=== PATIENT | female | born 1960 | race Caucasian/White ===

== ENCOUNTER 2016-10-17 02:04 | Observation (INO) | payer OTHER, MEDICAID ==
[~2016-10-17] VITALS: Ht 154.9 cm; Wt 76.8 kg
[2016-10-17] VITALS (9 sets, daily range): BP systolic 111–168; BP diastolic 73–113; PULSE 88–99; RESP 14–18; TEMP 98–98.4; O2SAT 93–100
[~2016-10-17 02:04] MED LIST: ALBU6.7H INH; ARIP1TAB5 PO; CANA100T; HYDR-3534 PO; LANTUS2P SC; LISI-357 PO; NOVOLOGSS SQ; PRED20 PO; ROSU40 PO; TRAD5TAB PO; TRAM50 PO; XANA0.5T PO
[2016-10-17] MEDS ORDERED: ASPIRIN 81 MG CHEW TAB PO ONE (02:15)
[2016-10-17] MEDS ORDERED: SODIUM CHLORIDE 0.9% FLUSH 10 ML FLUSH IVF PRN (02:15)
[2016-10-17] MEDS ORDERED: METF1000 PO (02:21)
[2016-10-17] MEDS ORDERED: NOVOLOGP2 SQ (02:21)
[2016-10-17] MEDS ORDERED: XANA2TAB2 PO (02:21)
[2016-10-17] MEDS ORDERED: VICT18IN SQ (02:21)
[2016-10-17] MEDS ORDERED: LISI10TA3 PO (02:21)
[2016-10-17] MEDS ORDERED: ROSU40 PO (02:21)
[2016-10-17] MEDS ORDERED: LANTUS2P SQ (02:21)
--- NOTE | 2016-10-17 02:22 | PD ---
HPI Chief Complaint: Chest Pain Time Seen by Provider: 02:05 Travel History International Travel<30 days: No Contact w/Intl Traveler<30days: No Traveled to known affect area: No History of Present Illness HPI Patient is a 56-year-old female smoker admits to cocaine use presents emergency Department with chest pain radiating down both arms, it was mild shortness of breath. She states is fairly sharp and intense but does feel like something is sitting on her. She was given nitroglycerin prior to arrival which relieved her pain. She states that they tried to do a stress test turned in the past but because of her chronic hip pain she was unable to do the walk. She denies a history of hyperlipidemia or hypertension but has not seen a physician in some time. She states that she did use cocaine the other day for sex. She states she smoked as many as 4 packs a day in the past. PFSH Past Medical History Hx Anticoagulant Therapy: No Asthma: Yes Autoimmune Disease: Yes (HEP C AND B) Blood Disorders: No Bipolar Disorder: Yes Anxiety: Yes Depression: Yes Cancer: No Cardiovascular Problems: No High Cholesterol: Yes Chemotherapy: No Chest Pain: Yes COPD: Yes Cerebrovascular Accident: No Diabetes: Yes Patient Takes Glucophage: Yes (METFORMIN ) Diminished Hearing: No Endocrine: Yes Genitourinary: No Hepatitis: Yes (Hep C) Hypertension: Yes Immune Disorder: Yes Medical other: Yes ("COLLAPSED RIGHT HIP") Musculoskeletal: Yes Neurologic: Yes Psychiatric: Yes (BIPOLAR) Reproductive: Yes Respiratory: No Migraines: Yes Myocardial Infarction: No Radiation Therapy: No Renal Failure: No Ulcer: No ?: Not Menopausal: Yes : 2 Para: 2 Tubal Ligation: Yes Past Surgical History AICD: No Arteriovenous Shunt: No Section: Yes Cholecystectomy: Yes Gynecologic Surgery: Yes (2 C-SECTIONS, PARTIAL HYSTERECTOMY) Hysterectomy: No Insulin Pump: No Joint Replacement: No Pacemaker: No Thoracic Surgery: Yes (CHOLECYSTECOMY) Other Surgery: Yes (RIGHT BREAST LUMPECTOMY BENIGN) Social History Alcohol Use: Yes (SOMETIMES ) Tobacco Use: Yes (pack every 3 days) Substance Use: No Allergies-Medications (Allergen,Severity, Reaction): Coded Allergies: Penicillin (Verified Allergy, Severe, THROAT SWELLS CLOSED, 10/17/16) Reported Meds & Prescriptions Reported Meds & Active Scripts Active Reported Xanax (Alprazolam) 2 Mg Tab 2 Mg PO BID PRN Crestor (Rosuvastatin Calcium) 40 Mg Tab 40 Mg PO DAILY Lisinopril 10 Mg Tab 10 Mg PO DAILY Metformin (Metformin HCl) 1,000 Mg Tab 1,000 Mg PO BIDPC With meals Victoza Inj (Liraglutide Inj) 18 Mg/3 Ml Pen 1.2 Mg SQ DAILY Novolog Inj (Insulin Aspart) 1,000 Unit/10 Ml Vial 0 SQ DIRECTED Sliding Scale as directed. Lantus Inj (Insulin Glargine) 1,000 Unit/10 Ml Vial 70 Units SQ AC BREAKFAST Review of Systems Except as stated in HPI: all other systems reviewed are Neg Physical Exam Narrative GENERAL: Well-developed well-nourished in no obvious distress, smells of cigarette smoke. SKIN: Focused skin assessment warm/dry. HEAD: Atraumatic. Normocephalic. EYES: Pupils equal and round. No scleral icterus. No injection or drainage. ENT: No nasal bleeding or discharge. Mucous membranes pink and moist. NECK: Trachea midline. No JVD. CARDIOVASCULAR: Regular rate and rhythm. No murmur appreciated. 2+ bilateral equal pulses in all 4 extremities. RESPIRATORY: No accessory muscle use. Clear to auscultation. Breath sounds equal bilaterally. GASTROINTESTINAL: Abdomen soft, non-tender, nondistended. Hepatic and splenic margins not palpable. MUSCULOSKELETAL: No obvious deformities. No clubbing. No cyanosis. No edema. NEUROLOGICAL: Awake and alert. No obvious cranial nerve deficits. Motor grossly within normal limits. Normal speech. PSYCHIATRIC: Appropriate mood and affect; insight and judgment normal. Data Data Last Documented VS Vital Signs Date Time Temp Pulse Resp B/P Pulse Ox O2 Delivery O2 Flow Rate FiO2 10/17/16 03:08 92 14 162/92 99 Room Air 10/17/16 02:15 2 10/17/16 02:11 98.1 Orders Electrocardiogram (10/17/16 02:05) Ckmb (Isoenzyme) Profile (10/17/16 02:05) Complete Blood Count With Diff (10/17/16 02:05) Comprehensive Metabolic Panel (10/17/16 02:05) Magnesium (Mg) (10/17/16 02:05) Prothrombin Time / Inr (Pt) (10/17/16 02:05) Act Partial Throm Time (Ptt) (10/17/16 02:05) Troponin I (10/17/16 02:05) Chest, Single Ap (10/17/16 02:05) Ecg Monitoring (10/17/16 02:05) Iv Access Insert/Monitor (10/17/16 02:05) Oximetry (10/17/16 02:05) Oxygen Administration (10/17/16 02:05) Aspirin Chew (Aspirin Chew) (10/17/16 02:15) Sodium Chloride 0.9% Flush (Ns Flush) (10/17/16 02:15) CKMB (10/17/16 02:12) CKMB% (10/17/16 02:12) Admit Order (Ed Use Only) (10/17/16 ) Activity Bed Rest With Brp (10/17/16 04:16) Vital Signs (Adult) Q4H (10/17/16 04:16) Cardiac Rhythm .As Directed (10/17/16 04:16) Notify Dr: Other .PRN (10/17/16 04:16) Notify DrAcosta Parameters (10/17/16 04:16) Resp Oxygen Nasal Cannula (10/17/16 ) Ckmb (Isoenzyme) Profile (10/17/16 05:00) Ckmb (Isoenzyme) Profile (10/17/16 08:00) Troponin I (10/17/16 05:00) Troponin I (10/17/16 08:00) Electrocardiogram (10/17/16 05:00) Electrocardiogram (10/17/16 08:00) ^ Obtain (10/17/16 04:16) Sodium Chloride 0.9% Flush (Ns Flush) (10/17/16 04:30) Sodium Chloride 0.9% Flush (Ns Flush) (10/17/16 09:00) Fish Flipper / Telemetry ANGELIQUE.Q8H (10/17/16 04:16) Labs Laboratory Tests Test 10/17/16 02:12 White Blood Count 10.4 TH/MM3 Red Blood Count 4.28 MIL/MM3 Hemoglobin 13.8 GM/DL Hematocrit 38.9 % Mean Corpuscular Volume 91.0 FL Mean Corpuscular Hemoglobin 32.3 PG Mean Corpuscular Hemoglobin 35.4 % Concent Red Cell Distribution Width 14.1 % Platelet Count 365 TH/MM3 Mean Platelet Volume 8.1 FL Neutrophils (%) (Auto) 65.0 % Lymphocytes (%) (Auto) 24.1 % Monocytes (%) (Auto) 7.0 % Eosinophils (%) (Auto) 3.4 % Basophils (%) (Auto) 0.5 % Neutrophils # (Auto) 6.8 TH/MM3 Lymphocytes # (Auto) 2.5 TH/MM3 Monocytes # (Auto) 0.7 TH/MM3 Eosinophils # (Auto) 0.4 TH/MM3 Basophils # (Auto) 0.1 TH/MM3 CBC Comment DIFF FINAL Differential Comment Prothrombin Time 10.0 SEC Prothromb Time International 0.9 RATIO Ratio Activated Partial 28.0 SEC Thromboplast Time Sodium Level 130 MEQ/L Potassium Level 3.7 MEQ/L Chloride Level 93 MEQ/L Carbon Dioxide Level 26.8 MEQ/L Anion Gap 10 MEQ/L Blood Urea Nitrogen 18 MG/DL Creatinine 1.49 MG/DL Estimat Glomerular Filtration 36 ML/MIN Rate Random Glucose 83 MG/DL Calcium Level 8.8 MG/DL Magnesium Level 1.1 MG/DL Total Bilirubin 0.3 MG/DL Aspartate Amino Transf 25 U/L (AST/SGOT) Alanine Aminotransferase 21 U/L (ALT/SGPT) Alkaline Phosphatase 117 U/L Total Creatine Kinase 182 U/L Creatine Kinase MB 5.3 NG/ML Troponin I LESS THAN 0.02 NG/ML Total Protein 7.7 GM/DL Albumin 3.0 GM/DL [facility] Medical Decision Making Medical Screen Exam Complete: Yes Emergency Medical Condition: Yes Differential Diagnosis ACS, AMI, pneumonia, pleurisy. Narrative Course Patient roomed emergency department, EKG is consistent with pulmonary disease, initial troponin negative. She is feeling comfortable after the nitroglycerin administered in the field. Her aspirin was brought up to 364 in the emergency department. Discussed with the patient despite initial laboratory workup negative recommend observation status for consideration of stress test and she is agreeable. Diagnosis Primary Impression: Chest pain Admitting Information Admitting Physician Requests: Observation Condition: Stable Dayo Green MD Oct 17, 2016 02:22
--- NOTE | 2016-10-17 02:32 | RADRPT ---
EXAM DATE/TIME: 10/17/2016 02:05 [facility] COMPARISON: CHEST SINGLE AP, October 03, 2014, 19:59. INDICATIONS : Chest pain. MEDICAL HISTORY : None. SURGICAL HISTORY : None. ENCOUNTER: Initial ACUITY: 1 day PAIN SCORE: 0/10 LOCATION: Bilateral chest FINDINGS: A single view of the chest demonstrates the lungs to be symmetrically aerated without evidence of mas s, infiltrate or effusion. The cardiomediastinal contours are unremarkable. Osseous structures are intact. CONCLUSION: The lungs are clear. Angel Johnson MD on October 17, 2016 at 2:30 Board Certified Radiologist. This report was verified electronically.
[2016-10-17 02:42] LABS: AUTOMATED NEUTROPHIL # 6.8 TH/MM3 (1.8-7.7); BASOPHIL # 0.1 TH/MM3 (0-0.2); BASOPHIL % 0.5 % (0.0-2.0); EOSINOPHIL # 0.4 TH/MM3 (0-0.4); EOSINOPHIL % 3.4 % (0.0-4.0); HEMATOCRIT 38.9 % (35.0-46.0); HEMO FLAGS DIFF FINAL; LYMPH % 24.1 % (9.0-44.0); LYMPHOCYTE # 2.5 TH/MM3 (1.0-4.8); MEAN CORPUSCULAR HEMOGLOBIN 32.3 PG (27.0-34.0); MEAN CORPUSCULAR HGB CONC 35.4 % (32.0-36.0); PLATELET COUNT 365 TH/MM3 (150-450); RED BLOOD COUNT 4.28 MIL/MM3 (4.00-5.30); RED CELL DISTRIBUTION WIDTH 14.1 % (11.6-17.2); WHITE BLOOD COUNT 10.4 TH/MM3 (4.0-11.0)
[2016-10-17 02:50] LABS: INTERNATIONAL NORMALIZED RATIO 0.9 RATIO
[2016-10-17 02:55] LABS: ALT (GPT) 21 U/L (10-53); ANION GAP 10 MEQ/L (5-15); AST (GOT) 25 U/L (15-37); BICARBONATE 26.8 MEQ/L (21.0-32.0); BLOOD UREA NITROGEN 18 MG/DL (7-18); CHLORIDE 93 MEQ/L (98-107); GLOMERULAR FILTRATION RATE 36 ML/MIN (>89); MAGNESIUM 1.1 MG/DL (1.5-2.5); POTASSIUM 3.7 MEQ/L (3.5-5.1); SODIUM (NA) 130 MEQ/L (136-145)
[2016-10-17 02:59] LABS: ALKALINE PHOSPHATASE 117 U/L (45-117); CREATINE KINASE 182 U/L (26-192); TOTAL BILIRUBIN ADULT 0.3 MG/DL (0.2-1.0)
[2016-10-17 03:12] LABS: CKMB 5.3 NG/ML (0.5-3.6)
[2016-10-17] MEDS ORDERED: SODIUM CHLORIDE 0.9% FLUSH 10 ML FLUSH IV FLUSH PRN (04:30)
[2016-10-17] MEDS ORDERED: NITROGLYCERIN 0.4 MG SL 25 TABS/BTL SL ONE (04:45)
[2016-10-17 05:58] LABS: CREATINE KINASE 155 U/L (26-192)
[2016-10-17 06:11] LABS: CKMB 4.4 NG/ML (0.5-3.6)
--- NOTE | 2016-10-17 08:11 | HHI.HP ---
HPI Primary Care Physician [facility] Chief Complaint Chest pain History of Present Illness 56-year-old female with history of diabetes, hypertension, and hyperlipidemia presents to emergency room for further evaluation of chest pain. Onset last evening 8 PM. Location left anterior chest. Initially episode began as numbness and tingling in her hands. And became ice cold and she noticed some to be white before becoming "blood red." Chest pain described as sharp pain. Associated symptoms of nausea. Duration 2 hours. Denies shortness of breath or diaphoresis. No known precipitating or relieving factors. Denies similar chest pain in the past. Endorses similar discomfort of numbness tingling and states her hands are always cold. Review of Systems General: No fatigue,weakness, fever, chills, or recent illness. Has been in her general state of health. HEENT: No GONZALEZ, no vision changes, no nasal congestion or drainage CV: As stated above. Denies any current chest pain or pressure. No palpitations, intermittent leg pain, or dizziness RESP: No SOB, cough, wheeze, or history of asthma. Continues to smoke 1 pack daily decreased from 5 packs daily. GI: No nausea, vomiting, bowel changes, diarrhea, constipation, pain, distention , melena, or blood in the stool. No change in appetite, no unintentional weight gain or weight loss. : No dysuria, urgency, frequency, or for UTIs. EXT: No lower leg edema, no paraesthesias MS: Chronic right hip pain, scheduled for surgery 11/16/16 for total hip replacement . No recent fall, injury, or known trauma. NEURO: No LOC PSYCH: No anxiety, depression, suicidal ideation, or situational stress Past Family Social History Allergies: Coded Allergies: Penicillin (Verified Allergy, Severe, THROAT SWELLS CLOSED, 10/17/16) Past Medical History Diabetes type II (last hemoglobin A1c 6.2%), hepatitis C (reports being cured with medication), bipolar disorder, hypertension, hyperlipidemia, anxiety, remote IVDA, recovering alcoholic Past Surgical History , left breast lumpectomy, cholecystectomy Reported Medications Active Reported Xanax (Alprazolam) 2 Mg Tab 2 Mg PO BID PRN Crestor (Rosuvastatin Calcium) 40 Mg Tab 40 Mg PO DAILY Lisinopril 10 Mg Tab 10 Mg PO DAILY Metformin (Metformin HCl) 1,000 Mg Tab 1,000 Mg PO BIDPC With meals Victoza Inj (Liraglutide Inj) 18 Mg/3 Ml Pen 1.2 Mg SQ DAILY Novolog Inj (Insulin Aspart) 1,000 Unit/10 Ml Vial 0 SQ DIRECTED Sliding Scale as directed. Lantus Inj (Insulin Glargine) 1,000 Unit/10 Ml Vial 70 Units SQ AC BREAKFAST Active Ordered Medications Current Medications Medications (Trade) Dose Ordered Sig/Mayo Route Start Time Stop Time Status Last Admin (NS Flush) 2 ml UNSCH PRN IVF 10/17/16 02:15 (NS Flush) 2 ml UNSCH PRN IV FLUSH 10/17/16 04:30 (NS Flush) 2 ml BID IV FLUSH 10/17/16 09:00 Family History Noncontributory for early onset cardiovascular disease. Social History Known diabetes, hypertension, and hyperlipidemia. No known personal coronary artery disease. Recovering alcoholic for 25 years. 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 Continues to smoke 1 pack/daily, this is decreased from 5 pack/daily. Endorses she used cocaine one week ago. Reports a sedentary lifestyle. Past cardiac testing None Physical Exam Vital Signs Vital Signs Date Time Temp Pulse Resp B/P Pulse Ox O2 Delivery O2 Flow Rate FiO2 10/17/16 06:19 18 10/17/16 06:11 98.4 95 18 122/90 97 10/17/16 05:16 89 14 168/89 98 Room Air 10/17/16 04:43 99 21 10/17/16 04:10 88 16 154/94 100 Room Air 10/17/16 03:08 92 14 162/92 99 Room Air 10/17/16 02:15 99 Nasal Cannula 2 10/17/16 02:11 98.1 99 14 159/113 93 Physical Exam GENERAL: Alert WN, WD, NAD, pleasant, obese, female who appears older than stated age, and disheveled HEAD: NC, AT EYES: Sclera clear, conjunctiva without injection, pupils equal and round ENT: Mucous membranes pink and moist CV: RRR, without murmur, rub, gallop, no JVD, S1-S2 no S3-S4. RESP: Faint expiratory wheeze. Diminished throughout. No crackles, wheeze, rhonchi, symmetrical chest rise, nonlabored, able to speak in full sentences. ABD: Soft, NT, ND, no masses, positive bowel tones, obese BACK: No CVAT EXT: Pulses +24, no dependent edema MS: Normal tone 4 extremities, nontender, no obvious deformities, full range of motion NEURO: CN II through CN XII grossly intact, motor strength 5/5 PSYCH: A+O 3, pleasant affect, appropriate speech, appropriate mood and affect , insight and judgment SKIN: Normal turgor, normal texture, no lesions, no rashes, even hair distribution, multiple tattoos, nail bed dirty Laboratory Laboratory Tests Test 10/17/16 10/17/16 02:12 05:15 White Blood Count 10.4 Red Blood Count 4.28 Hemoglobin 13.8 Hematocrit 38.9 Mean Corpuscular Volume 91.0 Mean Corpuscular Hemoglobin 32.3 Mean Corpuscular Hemoglobin 35.4 Concent Red Cell Distribution Width 14.1 Platelet Count 365 Mean Platelet Volume 8.1 Neutrophils (%) (Auto) 65.0 Lymphocytes (%) (Auto) 24.1 Monocytes (%) (Auto) 7.0 Eosinophils (%) (Auto) 3.4 Basophils (%) (Auto) 0.5 Neutrophils # (Auto) 6.8 Lymphocytes # (Auto) 2.5 Monocytes # (Auto) 0.7 Eosinophils # (Auto) 0.4 Basophils # (Auto) 0.1 CBC Comment DIFF FINAL Differential Comment Prothrombin Time 10.0 Prothromb Time International 0.9 Ratio Activated Partial 28.0 Thromboplast Time Sodium Level 130 Potassium Level 3.7 Chloride Level 93 Carbon Dioxide Level 26.8 Anion Gap 10 Blood Urea Nitrogen 18 Creatinine 1.49 Estimat Glomerular Filtration 36 Rate Random Glucose 83 Calcium Level 8.8 Magnesium Level 1.1 Total Bilirubin 0.3 Aspartate Amino Transf 25 (AST/SGOT) Alanine Aminotransferase 21 (ALT/SGPT) Alkaline Phosphatase 117 Total Creatine Kinase 182 155 Creatine Kinase MB 5.3 4.4 Troponin I LESS THAN 0.02 LESS THAN 0.02 Total Protein 7.7 Albumin 3.0 Result Diagram: 10/17/1621110/17/16211 Imaging Last Impressions Chest X-Ray 10/17/16204 Signed Impressions: Service Date/Time: Monday, October 17, 2016 02:05 - CONCLUSION: The lungs are clear. Angel Johnson MD Myocardial Perfusion Scan Nuc Med 10/17/16 0000 Signed Impressions: Service Date/Time: Monday, October 17, 2016 09:06 - CONCLUSION: Negative for stress-induced ischemia. Ejection fraction measured greater than 70%%. RISK CATEGORY: Low (<1%% Annual Mortality Rate) Uriel Henderson MD FACR Course EKG Normal sinus rhythm, no ST or T-segment changes Assessment and Plan Assessment and Plan Atypical chest painadmitted to chest pain center. Ruled out with 3 sets of EKGs, cardiac enzymes, and monitored overnight. Seen and evaluated by Dr. Praveen Xiong. Proceed with chemical stress test as morning. Naturally if stress test unremarkable, plans to discharge with follow-up with PCP. DiabetesSSI medium dose coverage, continue Levemir Hypertensioncontinue to monitor, continue lisinopril Hyperlipidemiacontinue Crestor Bipolar-continue home medications once corrected in EMR. Tobacco usestrongly encouraged and stressed the importance of tobacco sensation. Strongly encouraged her to quit smoking. Cocaine use- Informed her of risk of cocaine use including NM and and even , strongly encouraged her to quit using any form of illegal drugs. Possible Raynaud syndrome-gloria and sed rate will be added to laboratory studies, explained GLORIA result may not be available prior to discharge. Education on lifestyle modifications of keeping affected area warm and importance of following up with PCP. Encouraged to stop smoking. Hanna Haines Oct 17, 2016 08:11
[2016-10-17] MEDS ORDERED: NITROGLYCERIN 0.4 MG SL 25 TABS/BTL SL PRN (08:15)
[2016-10-17] MEDS ORDERED: ACETAMINOPHEN 500 MG CPLT PO PRN (08:15)
[2016-10-17] MEDS ORDERED: GLUCAGON 1 MG/ML VIAL OTHER PRN (08:15)
[2016-10-17] MEDS ORDERED: DEXTROSE 50% IN WATER 50 ML VIAL(D50) IV PRN (08:15)
[2016-10-17] MEDS ORDERED: ONDANSETRON HCL 4 MG/2 ML VIAL IV PRN (08:15)
[2016-10-17] MEDS ORDERED: ATORVASTATIN 80 MG TAB PO SCH (09:00)
[2016-10-17] MEDS ORDERED: LISINOPRIL 10 MG TAB PO SCH (09:00)
[2016-10-17] MEDS ORDERED: ASPIRIN 325 MG TAB PO SCH (09:00)
[2016-10-17] MEDS ORDERED: SODIUM CHLORIDE 0.9% FLUSH 10 ML FLUSH IV FLUSH SCH (09:00)
[2016-10-17 09:36] LABS: CREATINE KINASE 195 U/L (26-192)
[2016-10-17 09:48] LABS: CKMB 4.4 NG/ML (0.5-3.6)
[2016-10-17] MEDS ORDERED: REGADENOSON INJ 0.4 MG/5 ML SYR ONE (09:59)
[2016-10-17] MEDS ORDERED: AMINOPHYLLINE INJ 250 MG/10 ML VIAL ONE (10:05)
[2016-10-17] MEDS ORDERED: INSULIN ASPART SUPPLEMENTAL SCALE SQ SCH (11:00)
--- NOTE | 2016-10-17 11:10 | RADRPT ---
EXAM DATE/TIME: 10/17/2016 09:06 [facility] COMPARISON: MYOCARDIAL PERF PHARM SPECT, GATED W/EF, October 03, 2012, 9:29. INDICATIONS : Mid chest pain with shortness of breath for one day. Angina. DOSE: 27.2 mCi Tc99m Myoview at stress. 8.6 mCi Tc99m Myoview at rest. 0.4 mg Lexiscan STRESS SYMPTOMS: Nausea and dyspnea. MEDICATIONS: 1.) 100 mg Aminophylline IV EJECTION FRACTION: > 70% MEDICAL HISTORY : Hepatitis C. Diabetes mellitus type 2. Asthma. SURGICAL HISTORY : Hysterectomy. section. Cholecystectomy. ENCOUNTER: Initial ACUITY: 1 day PAIN SCALE: 5/10 LOCATION: Midsternal chest TECHNIQUE: The patient underwent pharmacologic stress with infusion of prescribed dose. Continuous ECG tracing was monitored during stress. Gated SPECT imaging was performed after stress and conventional SPECT i maging was performed at rest. The examination was performed on a SPECT/CT scanner, both attenuation and non-corrected datasets were reviewed. FINDINGS: DISTRIBUTION: The maximum perfused segment at stress is in the anterior lateral wall. PERFUSION STUDY: The pattern of perfusion at stress is within normal limits. GATED STUDY: There is intact wall motion and thickening without hypokinetic or dyskinetic segments. CONCLUSION: Negative for stress-induced ischemia. Ejection fraction measured greater than 70%. RISK CATEGORY: Low (<1% Annual Mortality Rate) Uriel Henderson MD FACR on October 17, 2016 at 11:07 Board Certified Radiologist. This report was verified electronically.
[2016-10-17] MEDS ORDERED: metFORMIN HCL 500 MG TAB PO SCH (12:30)
--- NOTE | 2016-10-17 15:07 | EKG ---
Date Performed: 10/17/2016 Time Performed: 08:15:30 PTAGE: 56 years EKG: Sinus rhythm LOW QRS VOLTAGE IN PRECORDIAL LEADS PREVIOUS TRACING : 10/17/2016 05.13 DOCTOR: Praveen Xiong Interpretating Date/Time 10/17/2016 15:06:55
--- NOTE | 2016-10-17 15:09 | EKG ---
Date Performed: 10/17/2016 Time Performed: 05:13:23 PTAGE: 56 years EKG: Sinus rhythm LOW QRS VOLTAGE IN PRECORDIAL LEADS BORDERLINE ECG PREVIOUS TRACING : 06/22/2013 13.54 Since previous tracing, no significant change noted DOCTOR: Praveen Xiong Interpretating Date/Time 10/17/2016 15:07:50
--- NOTE | 2016-10-17 15:12 | EKG ---
Date Performed: 10/17/2016 Time Performed: 02:13:13 PTAGE: 56 years EKG: Sinus rhythm BORDERLINE LEFT AXIS DEVIATION LOW QRS VOLTAGE IN PRECORDIAL LEADS ABNORMAL ECG NO PREVIOUS TRACING DOCTOR: Praveen Xiong Interpretating Date/Time 10/17/2016 15:11:38
--- NOTE | 2016-10-17 15:16 | TR ---
Date Performed: 10/17/2016 Time Performed: 09:42:42 DOCTOR: Praveen Xiong DRUG LIST: CLINICAL HISTORY: REASON FOR TEST: REASON FOR ENDING: OBSERVATION: CONCLUSION: Lexiscan stress test was performed under standard four minute protocol. Radionuclid e was injected one minute prior to ending the test. No electrocardiographic abormalities were present to suggest ischemia. Nuclear imaging and interpretation are pending. COMMENTS:
[2016-10-17] MEDS ORDERED: ALPRAZolam 1 MG TAB PO ONE (15:45)
--- NOTE | 2016-10-17 16:13 | HHI.DCPOC ---
Discharge Care Plan Diagnosis: (1) Atypical chest pain (2) Hypertension (3) Diabetes type 2, controlled (4) Tobacco abuse (5) Raynaud's phenomenon (by history or observed) Goals to Promote Your Health * To prevent worsening of your condition and complications * To maintain your health at the optimal level Directions to Meet Your Goals Take your medications as prescribed Follow your dietary instruction Follow activity as directed Keep your appointments as scheduled Take your immunizations and boosters as scheduled If your symptoms worsen call your PCP, if no PCP go to Urgent Care Center or Emergency Room Smoking is Dangerous to Your Health. Avoid second hand smoke Call the 24-hour hour crisis hotline for domestic abuse at Hanna Haines Oct 17, 2016 16:13
[2016-10-18] MEDS ORDERED: INSULIN GLARGINE 1,000 UNITS/10 ML VIAL SQ SCH (07:00)
[2016-11-15] MEDS ORDERED: HYDR-3580 PO (10:00)
[2016-11-15] MEDS ORDERED: OMEP40CA2 PO (10:00)
[2016-11-15] MEDS ORDERED: VICT18IN SQ (10:00)
== END 2016-10-17 17:42 | disposition home or self-care (01) ==
LOC: NEPC 02:04 → NEDA 04:20 → NEPGCP 05:55
DX: R07.89 Other chest pain (principal); E11.9 Type 2 diabetes mellitus without complications; E78.5 Hyperlipidemia, unspecified; E78.00 Pure hypercholesterolemia, unspecified; F10.21 Alcohol dependence, in remission; I73.00 Raynaud's syndrome without gangrene; I10 Essential (primary) hypertension; F17.200 Nicotine dependence, unspecified, uncomplicated; F14.90 Cocaine use, unspecified, uncomplicated; F31.9 Bipolar disorder, unspecified; G89.29 Other chronic pain; J44.9 Chronic obstructive pulmonary disease, unspecified; R94.31 Abnormal electrocardiogram [ECG] [EKG]; Z79.4 Long term (current) use of insulin; F41.9 Anxiety disorder, unspecified
CPT/HCPCS: 71010; 78452; 80053; 82550; 82552; 82948; 83735; 84484; 85025; 85610; 85652; 85730; 86038; 93005; 93017; 96372; 99285; A9502; G0378; J0280; J1815; J2785

== ENCOUNTER 2016-11-16 05:30 | Inpatient (IN) | payer OTHER, MEDICARE ==
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
[~2016-11-16] VITALS: Ht 154.9 cm; Wt 75.4 kg
[~2016-11-16 05:30] MED LIST changes: -ALBU6.7H INH; -ARIP1TAB5 PO; -CANA100T; -HYDR-3534 PO; +HYDR-3580 PO; -LANTUS2P SC; +LANTUS2P SQ; -LISI-357 PO; +LISI10TA3 PO; +METF1000 PO; +NOVOLOGP2 SQ; -NOVOLOGSS SQ; +OMEP40CA2 PO; -PRED20 PO; -TRAD5TAB PO; -TRAM50 PO; +VICT18IN SQ; -XANA0.5T PO; +XANA2TAB2 PO
[2016-11-16] MEDS ORDERED: POVIDONE IODINE 5% (ANTISEPSIS KIT) 4 APPLICATIONS EACH NARE PRN (06:00)
[2016-11-16] MEDS ORDERED: METOPROLOL TARTRATE 25 MG TAB PO PRN (06:00)
[2016-11-16] MEDS ORDERED: INSULIN HUMAN REGULAR 1,000 UNITS/10 ML VIAL SQ PRN (06:00)
[2016-11-16] MEDS ORDERED: SODIUM CHLORID 0.9% 500 ML IV PRN (06:00)
[2016-11-16] MEDS ORDERED: POVIDONE IODINE 7.5% SCRUB 118 ML BOTTLE TOPICAL SCH (06:00)
[2016-11-16] MEDS ORDERED: CHLORHEXIDINE GLUCONATE 2 % 1 PACK (2 CLOTHS) TOPICAL PRN (06:00)
[2016-11-16] MEDS ORDERED: LACTATED RINGER'S 1000 ML IV PRN (06:00)
[2016-11-16] MEDS ORDERED: VANCOMYCIN 1000 MG/NS 250 ML (for <70 kg) IV SCH ×2 (06:00)
[2016-11-16] MEDS ORDERED: ceFAZolin INJ 1,000 MG VIAL ONE (06:11)
[2016-11-16] MEDS ORDERED: TRANEXAMIC ACID 1 GM PRIOR TO PROCEDURE IV SCH ×2 (06:15)
[2016-11-16] MEDS ORDERED: VANCOMYCIN HCL 1000 MG VIAL ONE (06:48)
[2016-11-16] MEDS ORDERED: SODIUM CHLORIDE 0.9% INJ 10 ML ONE (06:48)
[2016-11-16] MEDS ORDERED: FAMOTIDINE 20 MG/2 ML VIAL ONE (06:50)
[2016-11-16] MEDS ORDERED: MIDAZOLAM HCL 2 MG/2 ML VIAL ONE (06:50)
[2016-11-16] MEDS ORDERED: ONDANSETRON HCL 4 MG/2 ML VIAL ONE (06:55)
[2016-11-16] MEDS ORDERED: TRANEXAMIC ACID 1 GM POST-OP IV SCH ×2 (09:15)
[2016-11-16] MEDS ORDERED: DO NOT ADM ANY ANTICOAGULANT DRUGS PRN (09:41)
[2016-11-16] MEDS ORDERED: ONDANSETRON HCL 4 MG/2 ML VIAL IVP PRN (09:45)
[2016-11-16] MEDS ORDERED: SODIUM CHLORIDE 0.9% FLUSH 5 ML FLUSH IVF PRN (09:45)
[2016-11-16] MEDS ORDERED: DOCUSATE SODIUM 100 MG CAP PO PRN (09:45)
[2016-11-16] MEDS ORDERED: ZOLPIDEM TARTRATE 5 MG TAB PO PRN (09:45)
[2016-11-16] MEDS ORDERED: TRANEXAMIC ACID INJ 1,000 MG in SODIUM CHLORIDE 0.9% INJ 100 ML IV SCH (09:45)
[2016-11-16] MEDS ORDERED: ACETAMINOPHEN/HYDROcodone 325 MG/7.5 MG TAB PO PRN (09:45)
[2016-11-16] MEDS ORDERED: ACETAMINOPHEN 325 MG TAB PO PRN (09:45)
[2016-11-16] MEDS ORDERED: MISCELLANEOUS PHARMACY INFORMATION XX ONE (09:45)
[2016-11-16] MEDS ORDERED: Post-op Orders (for Pharmacy) MISC XX ONE (09:45)
[2016-11-16] MEDS ORDERED: NALOXONE HCL 0.4 MG/ML AMP IV PRN (09:45)
[2016-11-16] MEDS: DEXT 5%-NACL 0.45% 1000 ML INJ 1,000 ML IV SCH ×2 (10:00→18:00)
[2016-11-16] MEDS: HYDROmorphone HCL PCA 6 MG/30 ML IV SCH ×2 (10:28→21:31)
--- NOTE | 2016-11-16 10:33 | RADRPT ---
EXAM DATE/TIME: 11/16/2016 10:14 [place] COMPARISON: No previous studies available for comparison. INDICATIONS : Post op right hip surgery MEDICAL HISTORY : None. SURGICAL HISTORY : None. ENCOUNTER: Initial ACUITY: 1 day PAIN SCORE: 0/10 LOCATION: Right hip FINDINGS: The patient is status post a total hip arthroplasty with a bipolar prosthesis. Prosthesis is well-sea aleyda. Alignment is anatomic. A fracture is not appreciated. CONCLUSION: Anatomic alignment. Urile Henderson MD FACR Board Certified Radiologist. This report was verified electronically.
[2016-11-16] MEDS ORDERED: LACTATED RINGER'S 1000 ML INJ 1,000 ML IV ONE (12:00)
[2016-11-16] MEDS ORDERED: PHENYLEPH/NS 1000 MCG/10 ML SYR IV ONE (12:00)
[2016-11-16] MEDS ORDERED: PROPOFOL 200 MG/20 ML AMP IV ONE (12:00)
[2016-11-16] MEDS ORDERED: ePHEDrine/NS 25 MG/5 ML SYR IV ONE (12:00)
[2016-11-16] MEDS ORDERED: NEOSTIGMINE 3 MG/3 ML SYR IV ONE (12:00)
[2016-11-16] MEDS ORDERED: ONDANSETRON HCL 4 MG/2 ML VIAL IV PUSH ONE (12:00)
[2016-11-16 13:50] VITALS: BP 176/97; PULSE 113; RESP 17; TEMP 96.6; O2SAT 94
[2016-11-16] MEDS: PCA - TOTAL MG DILAUDID DELIVERED PER SHIFT SCH ×2 (14:00→21:31)
[2016-11-16] MEDS: ACETAMINOPHEN/HYDROcodone 325 MG/7.5 MG TAB PO PRN ×2 (14:32→21:36)
[2016-11-16] MEDS ORDERED: GLUCAGON 1 MG/ML VIAL OTHER PRN (15:00)
[2016-11-16] MEDS ORDERED: DEXTROSE 50% IN WATER 50 ML VIAL(D50) IV PRN (15:00)
--- NOTE | 2016-11-16 15:00 | PD.CONS ---
[facility] By [facility] Physician Unknown Diagnoses: History of Present Illness Mrs. Arceo is a 56-year-old female. She is hospitalized to have a total right hip replacement surgery. Baseline medical conditions include diabetes mellitus type 2, I pull her disorder, migraine headaches, hypertension, and COPD. Past surgeries R and breast lumpectomy. She is a smoker. Presently she is declining NicoDerm. Diabetes hypertension and alcoholism runs in her family. She denies any alcohol abuse. I am seeing her in the surgical holding area. She is postop and seen. She is doing well this time without complaints of nausea vomiting or diarrhea and pain is controlled. Review of Systems Constitutional: DENIES: Fever, Chills, Change in appetite Endocrine: DENIES: Heat/cold intolerance Eyes: DENIES: Blurred vision, Eye pain Ears, nose, mouth, throat: DENIES: Tinnitus, Hearing loss, Vertigo Respiratory: DENIES: Apneas, Cough, Snoring, Wheezing, Shortness of breath Cardiovascular: DENIES: Chest pain, Palpitations, Syncope Gastrointestinal: DENIES: Abdominal pain, Black stools, Bloody stools Musculoskeletal: DENIES: Joint pain, Muscle aches, Stiffness Integumentary: DENIES: Abnormal pigmentation Hematologic/lymphatic: DENIES: Bruising, Lymphadenopathy Immunologic/allergic: DENIES: Eczema Neurologic: DENIES: Abnormal gait, Headache, Paresthesias Psychiatric: DENIES: Anxiety, Confusion, Hallucinations Past Family Social History Allergies: Coded Allergies: penicillin G (Unverified Allergy, Severe, THROAT SWELLS CLOSED, 11/15/16) Past Medical History Diabetes mellitus type 2 Hypertension COPD Migraine headaches Bipolar disorder Past Surgical History Breast lumpectomy (benign) Reported Medications Reported Meds & Active Scripts Active Reported Omeprazole 40 Mg Cap 40 Mg PO DAILY Hydrocodone-Acetaminophen 7.5-325 mg Tab 1 Tab PO Q4H PRN Xanax (Alprazolam) 2 Mg Tab 2 Mg PO BID PRN Crestor (Rosuvastatin Calcium) 40 Mg Tab 40 Mg PO DAILY Lisinopril 10 Mg Tab 10 Mg PO DAILY Metformin (Metformin HCl) 1,000 Mg Tab 1,000 Mg PO BIDPC With meals Victoza Inj (Liraglutide Inj) 18 Mg/3 Ml Pen 1.2 Mg SQ DAILY Novolog Inj (Insulin Aspart) 1,000 Unit/10 Ml Vial 0 SQ DIRECTED Sliding Scale as directed. Lantus Inj (Insulin Glargine) 1,000 Unit/10 Ml Vial 70 Units SQ AC BREAKFAST Active Ordered Medications Administered Medications Medications (Trade) Dose Ordered Sig/Mayo Route PRN Reason Start Time Stop Time Status Last Admin Dose Admin Lactated Ringer's 1,000 ml @ 30 mls/hr Q24H PRN IV SEE LABEL COMMENTS 11/16/16 06:00 11/19/16 05:59 11/16/16 06:20 Povidone Iodine (Betadine 5% Antisepsis Kit) 1 applic SENIOR TECHNOLOGIST PRN EACH NARE SEE LABEL COMMENTS 11/16/16 06:00 11/19/16 05:59 11/16/16 06:29 Chlorhexidine Gluconate (Chlorhexidine 2% Cloth) 3 pack SENIOR TECHNOLOGIST PRN TOPICAL SEE LABEL COMMENTS 11/16/16 06:00 11/19/16 05:59 11/16/16 06:00 Povidone Iodine (Betadine 7.5% Scrub) 1 applic ONCE TOPICAL 11/16/16 06:00 11/19/16 05:59 11/16/16 06:00 Vancomycin HCl 1000 mg/Sodium Chloride 250 ml @ 250 mls/hr SENIOR TECHNOLOGIST IV 11/16/16 06:00 11/19/16 05:59 11/16/16 06:30 Tranexamic Acid 1000 mg/Sodium Chloride 110 ml @ 220 mls/hr ONCE IV 11/16/16 09:15 11/16/16 15:15 11/16/16 10:27 Dextrose/Sodium Chloride 1,000 ml @ 125 mls/hr Q8H IV 11/16/16 10:00 11/16/16 10:00 Acetaminophen/ Hydrocodone Bitart ([place] 7.5-325 Mg) 2 tab Q4H PRN PO PAIN SCALE 5 TO 10 11/16/16 09:45 11/16/16 14:32 Hydromorphone HCl (Dilaudid SHELLFISH MANAGER Inj) 6 mg UNSCH IV 11/16/16 09:45 11/16/16 10:28 Family History Mother had diabetes mellitus type 2, hypertension, alcohol abuse Father had diabetes mellitus type 2, hypertension, and alcohol abuse Social History No alcohol abuse No drug abuse Patient smokes about 1 pack per day Physical Exam Vital Signs Vital Signs Date Time Temp Pulse Resp B/P (MAP) Pulse Ox O2 Delivery O2 Flow Rate FiO2 11/16/16 10:45 95 15 128/71 (90) 94 Nasal Cannula 3 11/16/16 10:30 97.8 95 15 123/72 (89) 93 Nasal Cannula 3 11/16/16 10:28 15 11/16/16 10:15 99 15 126/75 (92) 92 Nasal Cannula 3 11/16/16 10:00 101 14 128/78 (95) 97 Simple Mask 7 11/16/16 09:50 105 14 136/85 (102) 95 Simple Mask 7 11/16/16 09:40 98.3 109 15 134/89 (104) 94 Simple Mask 7 11/16/16 06:18 97.8 107 18 171/97 (121) 95 Physical Exam GENERAL: NAD, A&Ox3 HEAD: Normocephalic. NECK: Supple, trachea midline. No lymphadenopathy. EYES: No scleral icterus. No injection or drainage. CARDIOVASCULAR: Regular rate and rhythm without murmurs, gallops, or rubs. RESPIRATORY: Breath sounds equal bilaterally. No accessory muscle use. GASTROINTESTINAL: Abdomen soft, non-tender, nondistended. MUSCULOSKELETAL: No cyanosis, or edema. Right hip immobilized. SKIN: Warm and dry. NEURO: No focal neurological deficitis. Imaging Last Impressions Hip X-Ray 11/16/16 0942 Signed Impressions: Service Date/Time: Wednesday, November 16, 2016 10:14 - CONCLUSION: Anatomic alignment. Uriel Henderson MD Assessment and Plan Problem List: (1) Hip pain, right ICD Code: M25.551 - Right hip pain Status: Acute (2) Diabetes type 2, controlled ICD Code: E11.9 - Type 2 diabetes mellitus without complications Status: Acute (3) Hypertension ICD Code: I10 - Essential (primary) hypertension Status: Acute Assessment and Plan Status post total right hip surgery Orthopedics following Continue as needed pain treatments Physical therapy Diabetes mellitus type 2 Follow blood sugars Insulin sliding scale Diabetic diet Hypertension Follow blood pressure COPD No exacerbation No change in baseline treatment Migraine headaches No headache Bipolar disorder No exacerbation Follow for any changes DVT prophylaxis Postop, per orthopedics Carl Hickman MD Nov 16, 2016 15:00
[2016-11-16 15:05] VITALS: O2SAT 92
[2016-11-16 16:00] VITALS: BP 164/94; PULSE 110; RESP 17; TEMP 96.6; O2SAT 94
[2016-11-16] MEDS: INSULIN ASPART SUPPLEMENTAL SCALE SQ SCH ×2 (17:00→21:31)
[2016-11-16 20:25] VITALS: BP 139/87; PULSE 97; RESP 19; TEMP 98.4; O2SAT 94
[2016-11-16] MEDS: ALPRAZolam 1 MG TAB PO PRN (21:23)
[2016-11-16] MEDS: VANCOMYCIN INJ 1,000 MG in SODIUM CHLOR 0.9% 250 ML INJ 250 ML IV SCH (21:24)
[2016-11-16] MEDS: SODIUM CHLORIDE 0.9% FLUSH 5 ML FLUSH IVF SCH (21:24)
[2016-11-16 22:35] VITALS: O2SAT 94
[2016-11-16] MEDS: RESP: ALBUTEROL 2.5 MG/IPRATROPIUM 0.5 MG NEB (PRN) NEB (22:35)
[2016-11-16] MEDS ORDERED: ATORVASTATIN 80 MG TAB PO ONE (22:45)
[2016-11-16 23:05] VITALS: BP_SYST 114; BP_SYST 123; BP_DIAS 71; BP_DIAS 78; PULSE 97; RESP 18; TEMP 97.6; TEMP 98.6; O2SAT 92; O2SAT 96
[2016-11-17] VITALS (8 sets, daily range): BP systolic 130–176; BP diastolic 74–98; PULSE 94–110; RESP 17–18; TEMP 98–101; O2SAT 93–96
[2016-11-17] MEDS: DEXT 5%-NACL 0.45% 1000 ML INJ 1,000 ML IV SCH ×3 (01:05→18:00)
[2016-11-17] MEDS: ACETAMINOPHEN/HYDROcodone 325 MG/7.5 MG TAB PO PRN ×5 (04:16→22:50)
[2016-11-17] MEDS: PCA - TOTAL MG DILAUDID DELIVERED PER SHIFT SCH ×3 (04:49→22:28)
[2016-11-17 06:45] LABS: HEMATOCRIT 32.7 % (35.0-46.0); REVIEW FLAG FINAL
[2016-11-17] MEDS: INSULIN DETEMIR 100 UNITS/ML VIAL SQ SCH (07:00)
[2016-11-17] MEDS ORDERED: HYDR-3580 PO (07:50)
[2016-11-17] MEDS ORDERED: ASPI325T PO (07:50)
--- NOTE | 2016-11-17 07:52 | HHI.FF ---
Face to Face Verification Diagnosis: (1) Degenerative joint disease (DJD) of hip Physical Therapy Gait training Hip: Total hip, Protocol: Right, Abduction pillow while in bed Right LE Weight Bearing: WB as tolerated Right LE Range of Motion: Active ROM Nursing Dressing Changes: Daily dressing change I have seen patient Bridgett Arceo on 11/17/16. My clinical findings support the need for the requested home health care services because: Limited ability to care for self High risk of falls I certify that my clinical findings support that this patient is homebound because: Post-op weakness Unsteady gait/balance Unsafe to leave home unassisted Manuel Sifuentes MD Nov 17, 2016 07:52
[2016-11-17] MEDS ORDERED: WALKER WHEELS/F1 MIS (07:56)
[2016-11-17] MEDS ORDERED: ADJUSTABLE COMM1 MIS (07:56)
[2016-11-17] MEDS: INSULIN ASPART SUPPLEMENTAL SCALE SQ SCH ×4 (08:00→20:36)
[2016-11-17] MEDS: PANTOPRAZOLE SOD 40 MG DELAYED RELEASE TAB PO SCH (08:50)
[2016-11-17] MEDS: VANCOMYCIN INJ 1,000 MG in SODIUM CHLOR 0.9% 250 ML INJ 250 ML IV SCH (08:50)
[2016-11-17] MEDS: LISINOPRIL 10 MG TAB PO SCH (08:50)
[2016-11-17] MEDS: RIVAROXABAN 10 MG TAB PO SCH (08:51)
[2016-11-17] MEDS: ALPRAZolam 1 MG TAB PO PRN ×2 (08:55→20:24)
[2016-11-17] MEDS: SODIUM CHLORIDE 0.9% FLUSH 5 ML FLUSH IVF SCH ×2 (09:00→20:24)
[2016-11-17] MEDS ORDERED: ATORVASTATIN 80 MG TAB PO SCH (09:00)
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
--- NOTE | 2016-11-17 11:02 | HHI.PR ---
Subjective Remarks Patient doing well today. She's been out of the bed to stand and sit in chair. No nausea or vomiting. Objective Vital Signs Date Time Temp Pulse Resp B/P (MAP) Pulse Ox O2 Delivery O2 Flow Rate FiO2 11/17/16 08:00 98.3 101 18 142/77 (98) 93 11/17/16 04:49 16 11/17/16 04:30 98.0 103 17 146/81 (102) 93 11/16/16 23:05 98.6 97 18 123/78 (93) 96 11/16/16 22:59 Nasal Cannula 3.00 Humidified 11/16/16 22:35 94 Nasal Cannula 2.00 11/16/16 21:31 18 11/16/16 21:31 18 11/16/16 20:25 98.4 97 19 139/87 (104) 94 11/16/16 16:00 96.6 110 17 164/94 (117) 94 11/16/16 15:05 92 Nasal Cannula 2.00 11/16/16 13:50 96.6 113 17 176/97 (123) 94 11/16/16 13:50 94 16 95 Nasal Cannula 3 11/16/16 13:30 97.5 96 16 132/74 (93) 95 Nasal Cannula 3 11/16/16 13:00 94 16 132/75 (94) 94 Nasal Cannula 3 11/16/16 12:00 93 16 134/72 (92) 94 Nasal Cannula 3 11/16/16 11:00 93 16 132/69 (90) 94 Nasal Cannula 3 I/O 11/16/16 11/16/16 11/16/16 11/17/16 11/17/16 11/17/16 07:00 15:00 23:00 07:00 15:00 23:00 Intake Total 2640 ml 240 ml 250 ml 240 ml Output Total 3700 ml Balance -1060 ml 240 ml 250 ml 240 ml Intake Oral 880 ml 240 ml 240 ml IV Total 560 ml 250 ml Other 1200 ml Output Urine Total 350 ml Estimated Blood Loss 350 ml Other 3000 ml # Voids 1 3 7 # Bowel Movements 1 0 0 Result Diagram: 11/17/16 0606 Objective Remarks GENERAL: NAD, A&Ox3 HEAD: Normocephalic. NECK: Supple, trachea midline. No lymphadenopathy. EYES: No scleral icterus. No injection or drainage. CARDIOVASCULAR: Regular rate and rhythm without murmurs, gallops, or rubs. RESPIRATORY: Breath sounds equal bilaterally. No accessory muscle use. GASTROINTESTINAL: Abdomen soft, non-tender, nondistended. MUSCULOSKELETAL: No cyanosis, or edema. Limited range of motion of right hip. SKIN: Warm and dry. NEURO: No focal neurological deficitis. A/P Problem List: (1) Hip pain, right ICD Code: M25.551 - Right hip pain Status: Acute Assessment and Plan Assessment and Plan 56 year old female status post total right hip surgery Status post total right hip surgery Orthopedics following Continue as needed pain treatments Physical therapy Plan for snf facility at discharge Diabetes mellitus type 2 Well-controlled thus far Follow blood sugars Insulin sliding scale Diabetic diet Hypertension Controlled Follow blood pressure COPD No exacerbation No change in baseline treatment Migraine headaches No headache complaint Bipolar disorder No exacerbation Follow for any changes DVT prophylaxis Postop, per orthopedics Discharge planning Plan for snf facility at discharge Carl Hickman MD Nov 17, 2016 11:02
[2016-11-17] MEDS: HYDROmorphone HCL PCA 6 MG/30 ML IV SCH (13:19)
[2016-11-17] MEDS: ATORVASTATIN 80 MG TAB PO SCH (20:24)
[2016-11-18] VITALS (7 sets, daily range): BP systolic 117–141; BP diastolic 77–93; PULSE 90–107; RESP 17–18; TEMP 97.3–99.3; O2SAT 91–96
[2016-11-18] MEDS: DEXT 5%-NACL 0.45% 1000 ML INJ 1,000 ML IV SCH ×2 (02:00→22:04)
[2016-11-18] MEDS: HYDROmorphone HCL PCA 6 MG/30 ML IV SCH (03:51)
[2016-11-18] MEDS: ACETAMINOPHEN/HYDROcodone 325 MG/7.5 MG TAB PO PRN ×5 (05:16→21:53)
[2016-11-18] MEDS: PCA - TOTAL MG DILAUDID DELIVERED PER SHIFT SCH ×2 (05:23→22:00)
[2016-11-18] MEDS: RESP: ALBUTEROL 2.5 MG/IPRATROPIUM 0.5 MG NEB (PRN) NEB (06:26)
[2016-11-18] MEDS: INSULIN DETEMIR 100 UNITS/ML VIAL SQ SCH (07:00)
[2016-11-18] MEDS: LISINOPRIL 10 MG TAB PO SCH (07:48)
[2016-11-18] MEDS: PANTOPRAZOLE SOD 40 MG DELAYED RELEASE TAB PO SCH (07:48)
[2016-11-18] MEDS: RIVAROXABAN 10 MG TAB PO SCH (07:49)
[2016-11-18] MEDS: INSULIN ASPART SUPPLEMENTAL SCALE SQ SCH ×4 (08:00→23:22)
[2016-11-18] MEDS: ALPRAZolam 1 MG TAB PO PRN ×2 (09:12→22:02)
[2016-11-18] MEDS ORDERED: MENTHOL LOZENGE BUCCAL PRN (10:00)
--- NOTE | 2016-11-18 15:19 | HHI.PR ---
Subjective Remarks Patient now able to ambulate with walker. No new complaints. She did have chills overnight which was associated with fever. This may be secondary to atelectasis, postop. Objective Vital Signs Date Time Temp Pulse Resp B/P (MAP) Pulse Ox O2 Delivery O2 Flow Rate FiO2 11/18/16 12:00 97.3 98 18 117/77 (90) 94 11/18/16 10:00 91 21 11/18/16 08:00 98.8 100 18 124/84 (97) 95 11/18/16 05:23 18 11/18/16 04:39 98.4 104 18 119/92 (101) 95 11/18/16 03:51 18 11/18/16 00:17 99.3 107 18 132/84 (100) 96 11/17/16 22:28 18 11/17/16 21:30 100.4 11/17/16 20:40 101.0 110 18 176/98 (124) 96 11/17/16 20:19 95 Nasal Cannula 3.00 11/17/16 16:00 98.2 94 18 130/82 (98) 94 I/O 11/17/16 11/17/16 11/17/16 11/18/16 11/18/16 11/18/16 07:00 15:00 23:00 07:00 15:00 23:00 Intake Total 250 ml 1090 ml 480 ml 240 ml Balance 250 ml 1090 ml 480 ml 240 ml Intake Oral 840 ml 480 ml 240 ml IV Total 250 ml 250 ml # Voids 12 3 4 # Bowel Movements 0 0 0 Result Diagram: 11/17/16 0606 Objective Remarks GENERAL: NAD, A&Ox3 HEAD: Normocephalic. NECK: Supple, trachea midline. No lymphadenopathy. EYES: No scleral icterus. No injection or drainage. CARDIOVASCULAR: Regular rate and rhythm without murmurs, gallops, or rubs. RESPIRATORY: Breath sounds equal bilaterally. No accessory muscle use. GASTROINTESTINAL: Abdomen soft, non-tender, nondistended. MUSCULOSKELETAL: No cyanosis, or edema. Limited range of motion of right hip. SKIN: Warm and dry. NEURO: No focal neurological deficitis. A/P Problem List: (1) Hip pain, right ICD Code: M25.551 - Right hip pain Status: Acute Assessment and Plan Assessment and Plan 56 year old female status post total right hip surgery. Fever overnight. Check CBC. Status post total right hip surgery Orthopedics following Continue as needed pain treatments Physical therapy Plan for longterm facility at discharge Diabetes mellitus type 2 Well-controlled thus far Follow blood sugars Insulin sliding scale Diabetic diet Hypertension Controlled Follow blood pressure COPD No exacerbation No change in baseline treatment Migraine headaches No headache complaint Bipolar disorder No exacerbation Follow for any changes DVT prophylaxis Postop, per orthopedics Discharge planning Plan for longterm facility at discharge Carl Hickman MD Nov 18, 2016 15:19
[2016-11-18] MEDS: SODIUM CHLORIDE 0.9% FLUSH 5 ML FLUSH IVF SCH ×2 (21:00→22:03)
[2016-11-18] MEDS: ATORVASTATIN 80 MG TAB PO SCH (21:52)
[2016-11-19 01:00] VITALS: BP 135/94; PULSE 98; RESP 17; TEMP 98.3; O2SAT 96
[2016-11-19] MEDS: ACETAMINOPHEN/HYDROcodone 325 MG/7.5 MG TAB PO PRN ×3 (02:29→11:30)
[2016-11-19] MEDS ORDERED: MAGNESIUM HYDROXIDE SUSP 30 ML CUP PO PRN (04:30)
[2016-11-19] MEDS: PCA - TOTAL MG DILAUDID DELIVERED PER SHIFT SCH (06:00)
[2016-11-19 08:00] VITALS: BP 162/107; PULSE 93; RESP 18; TEMP 97.8; O2SAT 94
[2016-11-19 08:32] LABS: AUTOMATED NEUTROPHIL # 4.3 TH/MM3 (1.8-7.7); BASOPHIL % 0.4 % (0.0-2.0); EOSINOPHIL # 0.3 TH/MM3 (0-0.4); EOSINOPHIL % 3.8 % (0.0-4.0); HEMATOCRIT 33.3 % (35.0-46.0); HEMO FLAGS DIFF FINAL; LYMPH % 25.6 % (9.0-44.0); LYMPHOCYTE # 1.8 TH/MM3 (1.0-4.8); MEAN CELL VOLUME 92.2 FL (80.0-100.0); MEAN CORPUSCULAR HEMOGLOBIN 30.7 PG (27.0-34.0); MEAN CORPUSCULAR HGB CONC 33.3 % (32.0-36.0); MONO % 9.2 % (0.0-8.0); PLATELET COUNT 266 TH/MM3 (150-450); RED BLOOD COUNT 3.61 MIL/MM3 (4.00-5.30); RED CELL DISTRIBUTION WIDTH 14.2 % (11.6-17.2); WHITE BLOOD COUNT 7.1 TH/MM3 (4.0-11.0)
--- NOTE | 2016-11-19 08:35 | PD.ORT.PN ---
Subjective Post Op Day #: 3 Subjective Remarks She has some discomfort still. There is some hip pain. Distance Walked 50 feet in AM; 80 feet in PM. Objective Vitals Vital Signs Date Time Temp Pulse Resp B/P (MAP) Pulse Ox O2 Delivery O2 Flow Rate FiO2 11/19/16 01:00 98.3 98 17 135/94 (108) 96 11/18/16 20:00 97.9 90 17 141/93 (109) 95 11/18/16 16:00 99.3 99 18 130/90 (103) 92 11/18/16 12:00 97.3 98 18 117/77 (90) 94 11/18/16 10:00 91 21 I/O 11/18/16 11/18/16 11/18/16 11/19/16 11/19/16 11/19/16 07:00 15:00 23:00 07:00 15:00 23:00 Intake Total 240 ml 960 ml 720 ml 960 ml Balance 240 ml 960 ml 720 ml 960 ml Intake Oral 240 ml 960 ml 720 ml 960 ml # Voids 4 5 3 8 # Bowel Movements 0 0 0 Result Diagram: 11/19/16 0730 Objective Remarks She is resting comfortably, supine in bed. The neurovascular status is intact. The dressing is dry and intact. Assessment & Plan Ortho Post Op Day #: 3 Problem List: Assessment and Plan Continue postop care and PT/OT. Discharge per Dr. Sifuentes. Juan Cormier MD (Charles) Nov 19, 2016 08:35
[2016-11-19 08:59] LABS: ANION GAP 7 MEQ/L (5-15); AST (GOT) 29 U/L (15-37); BLOOD UREA NITROGEN 9 MG/DL (7-18); CHLORIDE 97 MEQ/L (98-107); GLOMERULAR FILTRATION RATE 153 ML/MIN (>89); POTASSIUM 3.2 MEQ/L (3.5-5.1); SODIUM (NA) 134 MEQ/L (136-145)
[2016-11-19 09:00] LABS: ALT (GPT) 27 U/L (10-53)
[2016-11-19] MEDS ORDERED: DOCUSATE SODIUM 50 MG/SENNA 8.6 MG TAB PO SCH (09:00)
[2016-11-19 09:02] LABS: ALKALINE PHOSPHATASE 161 U/L (45-117); TOTAL BILIRUBIN ADULT 0.3 MG/DL (0.2-1.0)
[2016-11-19] MEDS: INSULIN ASPART SUPPLEMENTAL SCALE SQ SCH ×2 (09:36→12:50)
[2016-11-19] MEDS: INSULIN DETEMIR 100 UNITS/ML VIAL SQ SCH (09:37)
[2016-11-19] MEDS: LISINOPRIL 10 MG TAB PO SCH (09:37)
[2016-11-19] MEDS: PANTOPRAZOLE SOD 40 MG DELAYED RELEASE TAB PO SCH (09:37)
[2016-11-19] MEDS: SODIUM CHLORIDE 0.9% FLUSH 5 ML FLUSH IVF SCH (09:38)
[2016-11-19] MEDS: RIVAROXABAN 10 MG TAB PO SCH (09:38)
[2016-11-19] MEDS: ALPRAZolam 1 MG TAB PO PRN (09:40)
[2016-11-19] MEDS: DEXT 5%-NACL 0.45% 1000 ML INJ 1,000 ML IV SCH (10:00)
[2016-11-19] MEDS ORDERED: DOCU100T9 PO (10:03)
--- NOTE | 2016-11-19 10:05 | HHI.PR ---
Subjective Remarks Colace added to discharge medications. Low potassium this morning, covered with one time PO replacement. Medically stable and clear for discharge to SNF today. Objective Vital Signs Date Time Temp Pulse Resp B/P (MAP) Pulse Ox O2 Delivery O2 Flow Rate FiO2 11/19/16 08:00 97.8 93 18 162/107 (125) 94 11/19/16 01:00 98.3 98 17 135/94 (108) 96 11/18/16 20:00 97.9 90 17 141/93 (109) 95 11/18/16 16:00 99.3 99 18 130/90 (103) 92 11/18/16 12:00 97.3 98 18 117/77 (90) 94 I/O 11/18/16 11/18/16 11/18/16 11/19/16 11/19/16 11/19/16 07:00 15:00 23:00 07:00 15:00 23:00 Intake Total 240 ml 960 ml 720 ml 960 ml Balance 240 ml 960 ml 720 ml 960 ml Intake Oral 240 ml 960 ml 720 ml 960 ml # Voids 4 5 3 8 # Bowel Movements 0 0 0 Result Diagram: 11/19/1672911/19/16 0730 Objective Remarks GENERAL: NAD, A&Ox3 HEAD: Normocephalic. NECK: Supple, trachea midline. No lymphadenopathy. EYES: No scleral icterus. No injection or drainage. CARDIOVASCULAR: Regular rate and rhythm without murmurs, gallops, or rubs. RESPIRATORY: Breath sounds equal bilaterally. No accessory muscle use. GASTROINTESTINAL: Abdomen soft, non-tender, nondistended. MUSCULOSKELETAL: No cyanosis, or edema. Limited range of motion of right hip. SKIN: Warm and dry. NEURO: No focal neurological deficitis. A/P Problem List: (1) Hip pain, right ICD Code: M25.551 - Right hip pain Status: Acute Assessment and Plan Assessment and Plan 56 year old female status post total right hip surgery. No recurrence of fever. Medically stable for discharge to SNF today. Status post total right hip surgery Orthopedics following Continue as needed pain treatments Physical therapy Diabetes mellitus type 2 Well-controlled thus far Follow blood sugars Insulin sliding scale Diabetic diet Hypertension Controlled Follow blood pressure COPD No exacerbation No change in baseline treatment Migraine headaches No headache complaint Bipolar disorder No exacerbation Follow for any changes DVT prophylaxis Postop, per orthopedics Discharge planning [facility] for [facility] Carl Hickman MD Nov 19, 2016 10:05
[2016-11-19] MEDS ORDERED: POTASSIUM CHLORIDE 20 MEQ PWD PACKET PO ONE (11:00)
[2016-11-19 12:00] VITALS: BP 143/90; PULSE 102; RESP 18; TEMP 98; O2SAT 91
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
== END 2016-11-19 15:08 | disposition home health service (06) | DRG 470 ==
LOC: HSDI 05:30 → N06B 14:10
PROVIDERS: ADMIT Orthopaedic Surgery; ATTEND Orthopaedic Surgery
PROC: 0SR903A Replacement of Right Hip Joint with Ceramic Synthetic Substitute, Uncemented, Open Approach (ICD-10-PCS; principal; 2016-11-16 06:57)
DX: M16.11 Unilateral primary osteoarthritis, right hip (principal); I10 Essential (primary) hypertension; E11.9 Type 2 diabetes mellitus without complications; F31.9 Bipolar disorder, unspecified; G43.909 Migraine, unspecified, not intractable, without status migrainosus; F41.9 Anxiety disorder, unspecified; J44.9 Chronic obstructive pulmonary disease, unspecified; F17.210 Nicotine dependence, cigarettes, uncomplicated; Z79.4 Long term (current) use of insulin; Z79.84 Long term (current) use of oral hypoglycemic drugs; Z99.3 Dependence on wheelchair
CPT/HCPCS: 73501; 80053; 82948; 85014; 85018; 85025; 86850; 86900; 86901; 88304; 88305; 88311; 94150; 94640; 94664; C1776; J0690; J1170; J1815; J2250; J2370; J2405; J2710; J3010; J3370; J7050; J7120

== ENCOUNTER 2017-02-11 10:41 | Emergency (ER) | payer OTHER, MEDICAID ==
[~2017-02-11] VITALS: Ht 154.9 cm; Wt 77.0 kg
[~2017-02-11 10:41] MED LIST changes: +ADJUSTABLE COMM1 MIS; +ASPI-183 PO; +DOCU100T9 PO; +WALKER WHEELS/F1 MIS
[2017-02-11 10:44] VITALS: BP 259/149; PULSE 113; RESP 20; TEMP 97.8; O2SAT 98
[2017-02-11 11:06] VITALS: BP 144/99; PULSE 115; RESP 20; O2SAT 97
--- NOTE | 2017-02-11 11:33 | PD ---
HPI Chief Complaint: Pain: Acute or Chronic Time Seen by Provider: 10:54 Travel History International Travel<30 days: No Contact w/Intl Traveler<30days: No Traveled to known affect area: No History of Present Illness HPI The patient was seen and examined in the presence of the nurse. This patient complains of pain and swelling and stiffness and both hands and wrists. Started 2 months ago. It seems to be Progressing. She seen her primary physician for it. Denies injury to those areas. No fever. Symptoms severity is moderate. No involvement of legs. PFSH Past Medical History Hx Anticoagulant Therapy: No Asthma: Yes Autoimmune Disease: Yes (HX OF HEP C AND B) Blood Disorders: No Bipolar Disorder: Yes Anxiety: Yes Depression: Yes Heart Rhythm Problems: No Cancer: No Cardiac Catheterization: No Cardiovascular Problems: Yes (HTN) High Cholesterol: Yes Chemotherapy: No Chest Pain: Yes Congestive Heart Failure: No COPD: Yes Cerebrovascular Accident: No Diabetes: Yes Patient Takes Glucophage: Yes Diminished Hearing: No Endocrine: Yes Gastrointestinal Disorders: Yes (GERD) Genitourinary: No Hepatitis: Yes (Hep C) Hiatal Hernia: No Hypertension: Yes Immune Disorder: Yes Musculoskeletal: Yes (OA) Neurologic: Yes (DDD) Psychiatric: Yes (BIPOLAR) Reproductive: No Respiratory: No Migraines: Yes Myocardial Infarction: No Radiation Therapy: No Renal Failure: No Thyroid Disease: No Ulcer: No Tetanus Vaccination: < 5 Years Influenza Vaccination: Yes ?: Not Menopausal: Yes : 2 Para: 2 Tubal Ligation: Yes Past Surgical History Abdominal Surgery: No AICD: No Arteriovenous Shunt: No Cardiac Surgery: No Section: Yes Cholecystectomy: Yes Coronary Artery Bypass Graft: No Ear Surgery: No Endocrine Surgery: No Eye Surgery: No Genitourinary Surgery: No Gynecologic Surgery: Yes (2 C-SECTIONS, PARTIAL HYSTERECTOMY) Hysterectomy: No Insulin Pump: No Joint Replacement: No Oral Surgery: No Pacemaker: No Thoracic Surgery: Yes (CHOLECYSTECOMY) Other Surgery: Yes (RIGHT BREAST LUMPECTOMY BENIGN) Family History Family Myocardial Infarction: Yes (mother, father - 60s) Social History Alcohol Use: No Tobacco Use: Yes (pack every 3 days) Substance Use: No Allergies-Medications (Allergen,Severity, Reaction): Coded Allergies: penicillin G (Unverified Allergy, Severe, THROAT SWELLS CLOSED, 11/15/16) Reported Meds & Prescriptions Reported Meds & Active Scripts Active Docusate Sodium 100 Mg Tab 100 Mg PO BID Adjustable Commode 3-in-1 (Device) 1 Mis Mis Ea .ROUTE DIRECTED Walker with Front Wheels (Device) 1 Mis Mis Ea .ROUTE DIRECTED use as directed Aspirin 325 Mg Tab 325 Mg PO BID Hydrocodone-Acetaminophen 7.5-325 mg Tab 1 Tab PO Q6HR PRN Reported Omeprazole 40 Mg Cap 40 Mg PO DAILY Xanax (Alprazolam) 2 Mg Tab 2 Mg PO BID PRN Crestor (Rosuvastatin Calcium) 40 Mg Tab 40 Mg PO DAILY Lisinopril 10 Mg Tab 10 Mg PO DAILY Metformin (Metformin HCl) 1,000 Mg Tab 1,000 Mg PO BIDPC With meals Victoza Inj (Liraglutide Inj) 18 Mg/3 Ml Pen 1.2 Mg SQ DAILY Novolog Inj (Insulin Aspart) 1,000 Unit/10 Ml Vial 0 SQ DIRECTED Sliding Scale as directed. Lantus Inj (Insulin Glargine) 1,000 Unit/10 Ml Vial 70 Units SQ AC BREAKFAST Review of Systems General / Constitutional: No: Fever HENT: No: Headaches Cardiovascular: No: Chest Pain or Discomfort Respiratory: No: Cough Physical Exam Narrative GENERAL: Well-nourished, well-developed patient in no apparent distress. SKIN: Focused skin assessment reveals no rash and nodules. Skin is Warm and dry. HEAD: Atraumatic. Normocephalic. EYES: Pupils equal and round. No scleral icterus. No injection or drainage. ENT: No nasal bleeding or discharge. Mucous membranes pink and moist. NECK: Trachea midline. No JVD. CARDIOVASCULAR: Regular rate and rhythm. No murmur appreciated. RESPIRATORY: No accessory muscle use. Clear to auscultation. Breath sounds equal bilaterally. GASTROINTESTINAL: Abdomen soft, non-tender, nondistended. Hepatic and splenic margins not palpable. MUSCULOSKELETAL: No obvious deformities. No clubbing. No cyanosis. No edema. No redness or warmth of hands or wrists at this time. NEUROLOGICAL: Awake and alert. No obvious cranial nerve deficits. Motor grossly within normal limits. Normal speech. PSYCHIATRIC: Appropriate mood and affect; insight and judgment normal. Data Data Last Documented VS Vital Signs Date Time Temp Pulse Resp B/P (MAP) Pulse Ox O2 Delivery O2 Flow Rate FiO2 02/11/17 11:06 115 20 144/99 (114) 97 Room Air 02/11/17 10:44 97.8 [facility] Medical Decision Making Medical Screen Exam Complete: Yes Emergency Medical Condition: Yes Medical Record Reviewed: Yes Differential Diagnosis Rheumatoid arthritis, nonspecific connective tissue disease, lupus Narrative Course I have reviewed the patient's electronic medical record. Her presentation seems to be consistent with a subacute undiagnosed connective tissue process. She has pain and inflammation in the joints of the small hands and wrists as well as morning stiffness which could suggest rheumatoid arthritis. Impossible in the emergency room to be specific. She should follow- up with the family physician or discuss rheumatology referral. Suggest she start some anti-inflammatory medication in the meantime. This can be 2-3 Advil every 8 hours. She denies alcohol abuse or peptic ulcer disease. Of note, the initial check and blood pressure was not correct. On recheck it's 140 systolic Diagnosis Primary Impression: Arthralgia Qualified Codes: M25.541 - Pain in joints of right hand; M25.542 - Pain in joints of left hand Additional Impression: Joint stiffness of hand Qualified Codes: M25.649 - Stiffness of unspecified hand, not elsewhere classified Med/Other Pt SpecificInfo: Other Disposition: 01 DISCHARGE HOME Condition: Stable Keith Cueto MD Feb 11, 2017 11:33
== END 2017-02-11 12:28 | disposition home or self-care (01) ==
LOC: NEPC 10:41
DX: M25.541 Pain in joints of right hand (principal); M25.542 Pain in joints of left hand; E11.9 Type 2 diabetes mellitus without complications; E78.00 Pure hypercholesterolemia, unspecified; I10 Essential (primary) hypertension; Z79.4 Long term (current) use of insulin; Z72.0 Tobacco use
CPT/HCPCS: 99282

== ENCOUNTER 2017-02-19 22:11 | Inpatient (IN) | payer OTHER, MEDICAID, MEDICARE ==
[~2017-02-19] VITALS: Ht 157.5 cm; Wt 77.9 kg
[2017-02-19 22:20] VITALS: BP 144/96; PULSE 108; RESP 26; TEMP 98.4; O2SAT 93
[2017-02-19] MEDS ORDERED: LANTUS2P SQ ×2 (22:34)
--- NOTE | 2017-02-19 22:34 | PD ---
HPI Chief Complaint: GI Complaint Time Seen by Provider: 22:26 Travel History International Travel<30 days: No Contact w/Intl Traveler<30days: No Traveled to known affect area: No History of Present Illness HPI The patient is a 56 year old female who presents to the [facility] emergency department with a history of abdominal pain in the center of her abdomen from the midepigastric area to the area just above the umbilicus that began just after 10 PM this morning. The patient reports that she began to have nausea and abdominal pain after she ate ham at 10 AM. She reports that she 's had vomiting at least 20 times since the onset. She denies having any diarrhea. She reports that she last moved her bowels earlier today. She denies having any blood in her stool or black or tarry stools. She reports that she did try taking Pepto-Bismol without relief of her discomfort. She reports that the pain feels like an explosion in her abdomen. She reports that she has bilateral flank pain associated with this. She also reports having a recent history over the last week of rust colored urine. She reports having urinary frequency and urgency, however she reports that this is chronic and unchanged. She denies having any dysuria. She reports that she does have a history of kidney stones in the past, however the pain is not similar. She denies having any recent fevers or chills. She denies having any prior history of bowel obstruction. On review of systems otherwise, the patient denies having any worsening cough or congestion, worsening neck pain, chest pain, shortness of breath, or neurologic symptoms. LMP: Status post hysterectomy PFSH Past Medical History Narrative Medical the patient's past medical history is significant for diabetes mellitus, hypertension, COPD, migraine headaches, bipolar disorder, history of chronic neck and back pain, managed by pain management. Hx Anticoagulant Therapy: No Asthma: Yes Autoimmune Disease: Yes (HX OF HEP C AND B) Blood Disorders: No Bipolar Disorder: Yes Anxiety: Yes Depression: Yes Heart Rhythm Problems: No Cancer: No Cardiac Catheterization: No Cardiovascular Problems: Yes (HTN) High Cholesterol: Yes Chemotherapy: No Chest Pain: Yes Congestive Heart Failure: No COPD: Yes Cerebrovascular Accident: No Diabetes: Yes Diminished Hearing: No Endocrine: Yes Gastrointestinal Disorders: Yes (GERD) Genitourinary: No Hepatitis: Yes (Hep C) Hiatal Hernia: No Hypertension: Yes Immune Disorder: Yes Musculoskeletal: Yes (OA) Neurologic: Yes (DDD) Psychiatric: Yes (BIPOLAR) Reproductive: No Respiratory: No Migraines: Yes Myocardial Infarction: No Radiation Therapy: No Renal Failure: No Thyroid Disease: No Ulcer: No ?: Not Menopausal: Yes : 2 Para: 2 Tubal Ligation: Yes Past Surgical History Narrative Surgical The patient's past surgical history is significant for a , partial hysterectomy, right hip replacement, 2 C-sections, breast lumpectomy-benign. Abdominal Surgery: No AICD: No Arteriovenous Shunt: No Cardiac Surgery: No Section: Yes Cholecystectomy: Yes Coronary Artery Bypass Graft: No Ear Surgery: No Endocrine Surgery: No Eye Surgery: No Genitourinary Surgery: No Gynecologic Surgery: Yes (2 C-SECTIONS, PARTIAL HYSTERECTOMY) Hysterectomy: No Insulin Pump: No Joint Replacement: No Oral Surgery: No Pacemaker: No Thoracic Surgery: Yes (CHOLECYSTECOMY) Other Surgery: Yes (RIGHT BREAST LUMPECTOMY BENIGN) Social History Alcohol Use: No Tobacco Use: Yes (pack every 3 days) Substance Use: No Allergies-Medications (Allergen,Severity, Reaction): Coded Allergies: penicillin G (Unverified Allergy, Severe, THROAT SWELLS CLOSED, 02/19/17) Reported Meds & Prescriptions Reported Meds & Active Scripts Active Adjustable Commode 3-in-1 (Device) 1 Mis Mis Ea .ROUTE DIRECTED Walker with Front Wheels (Device) 1 Mis Mis Ea .ROUTE DIRECTED use as directed Aspirin 325 Mg Tab 325 Mg PO BID Hydrocodone-Acetaminophen 7.5-325 mg Tab 1 Tab PO Q6HR PRN Reported Lantus Inj (Insulin Glargine) 1,000 Unit/10 Ml Vial 55 Units SQ AC BREAKFAST Omeprazole 40 Mg Cap 40 Mg PO DAILY Xanax (Alprazolam) 2 Mg Tab 2 Mg PO BID PRN Crestor (Rosuvastatin Calcium) 40 Mg Tab 40 Mg PO DAILY Lisinopril 10 Mg Tab 10 Mg PO DAILY Metformin (Metformin HCl) 1,000 Mg Tab 1,000 Mg PO BIDPC With meals Victoza Inj (Liraglutide Inj) 18 Mg/3 Ml Pen 1.2 Mg SQ DAILY Novolog Inj (Insulin Aspart) 1,000 Unit/10 Ml Vial 0 SQ DIRECTED Sliding Scale as directed. Review of Systems Except as stated in HPI: all other systems reviewed are Neg General / Constitutional: No: Fever Eyes: No: Visual changes HENT: No: Headaches, Congestion, Neck Stiffness Cardiovascular: No: Chest Pain or Discomfort Respiratory: No: Cough, Shortness of Breath Gastrointestinal: Positive: Nausea, Vomiting, Abdominal Pain Genitourinary: Positive: Urgency, Frequency (bilateral flank pain), Hematuria, Flank Pain, No: Dysuria Musculoskeletal: No: Pain Skin: No Rash Neurologic: No: Weakness Psychiatric: No: Depression Endocrine: No: Polydipsia Hematologic/Lymphatic: No: Easy Bruising Physical Exam Narrative General: The patient is a well-developed well-nourished female in no acute distress Head and Neck exam: Head is normocephalic atraumatic. Eyes: EOMI, pupils are equal round and reactive to light. Nose: Midline septum with pink mucous membranes Mouth: Dentition unremarkable. Moist mucus membranes. Posterior oropharynx is not erythematous. No tonsillar hypertrophy. Uvula midline. Airway patent. Neck: No palpable lymphadenopathy. No nuchal rigidity. No thyromegaly. Cardiovascular: Regular rate and rhythm without murmurs, gallops, or rubs. Lungs: Clear to auscultation bilaterally. No wheezes, rhonchi, or rales. Abdomen: Soft, with reported tenderness on palpation along the midepigastric area and area in the center of the abdomen above the umbilicus. Normal bowel sounds are audible. No guarding, rebound, or rigidity. No tenderness on palpation of McBurney's point. Negative Lorenzo's sign. Extremities: No clubbing, cyanosis, or edema. 2+ pulses in all 4 extremities. No calf tenderness on palpation. Back: No spinous process tenderness to palpation. Bilateral CVA tenderness as reported on palpation. Neurologic Exam: Grossly nonfocal. Skin Exam: No rash noted. Intact skin that is warm and dry. Data Data Last Documented VS Vital Signs Date Time Temp Pulse Resp B/P (MAP) Pulse Ox O2 Delivery O2 Flow Rate FiO2 02/19/17 22:20 98.4 108 26 144/96 (112) 93 Orders Orders Electrocardiogram (02/19/17 22:26) Complete Blood Count With Diff (02/19/17 22:26) Comprehensive Metabolic Panel (02/19/17 22:26) Creatine Kinase (Cpk) (02/19/17 22:26) Ckmb (Isoenzyme) Profile (02/19/17 22:26) Troponin I (02/19/17 22:26) Prothrombin Time / Inr (Pt) (02/19/17 22:) Act Partial Throm Time (Ptt) (02/19/17 22:26) C-Reactive Protein (Crp) (02/19/17 22:26) Lipase (02/19/17 22:) Urinalysis - C+S If Indicated (02/19/17 22:) Magnesium (Mg) (02/19/17 22:26) Chest, Single Ap (02/19/17 22:26) Ct Abd/Pel W Iv Contrast(Rout) (02/19/17 22:26) Iv Access Insert/Monitor (02/19/17 22:) Ecg Monitoring (02/19/17 22:) Oximetry (02/19/17 22:) Ondansetron Inj (Zofran Inj) (02/19/17 23:45) Morphine Inj (Morphine Inj) (02/19/17 23:45) Sodium Chlorid 0.9% 500 Ml Inj (Ns 500 M (02/19/17 23:45) Blood Culture (02/19/17 23:47) Lactic Acid Sepsis Protocol (02/19/17 23:47) Sodium Chlor 0.9% 1000 Ml Inj (Ns 1000 M (02/20/17 00:00) Vancomycin Inj (Vancomycin Inj) (02/20/17 00:00) Aztreonam Inj (Azactam Inj) (02/20/17 00:00) Metronidazole 500 Mg Inj (Flagyl 500 Mg (02/20/17 00:00) Iohexol 350 Inj (Omnipaque 350 Inj) (02/19/17 23:59) Jass-Gastric Tube Insert/Mon (02/20/17 00:44) Potassium Chlor 20 Meq Premix (Kcl 20 Me (02/20/17 00:45) Admit Order (Ed Use Only) (02/20/17 00:44) Bedside Glucose ANGELIQUE.CSUGAR (02/20/17 00:44) Blood Glucose Goal (Criteria) (02/20/17 00:44) Hypoglycemia 70 Mg/Dl Or < (02/20/17 00:44) Notify Dr: Other (02/20/17 00:44) Dextrose 50% In Kinza (Vial) Inj (D50w (Vi (02/20/17 00:45) Glucagon Inj (Glucagon Inj) (02/20/17 00:45) Insulin Aspart Supplemtl Scale (Novolog (02/20/17 08:00) Ciprofloxacin 400 Mg Premix (Cipro 400 M (02/20/17 12:00) Metronidazole 500 Mg Inj (Flagyl 500 Mg (02/20/17 08:00) Consult General Surgery (02/20/17 ) Admit To Inpatient (02/20/17 ) Vital Signs (Adult) Q4H (02/20/17 00:44) Activity Oob With Assistance (02/20/17 00:44) 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 / Telemetry .CONTINUOUS (02/20/17 00:44) Intake + Output ANGELIQUE.QSHIFT (02/20/17 00:44) Diet Npo (02/20/17 Breakfast) Sodium Chlor 0.9% 1000 Ml Inj (Ns 1000 M (02/20/17 00:44) Sodium Chloride 0.9% Flush (Ns Flush) (02/20/17 00:45) Sodium Chloride 0.9% Flush (Ns Flush) (02/20/17 09:00) Ondansetron Inj (Zofran Inj) (02/20/17 00:45) Comprehensive Metabolic Panel (02/21/17 06:00) Complete Blood Count With Diff (02/21/17 06:00) Scd Bilateral/Knee High ANGELIQUE.BID (02/20/17 00:44) Magdaleno Bilateral/Knee High ANGELIQUE.QSHIFT (02/20/17 00:47) Morphine Inj (Morphine Inj) (02/20/17 00:45) Morphine Inj (Morphine Inj) (02/20/17 00:45) Acetaminophen 1000 Mg/100 Ml (Ofirmev 10 (02/20/17 00:45) Docusate Sodium-Senna (Reyna-Colace) (02/20/17 09:00) Magnesium Hydroxide Liq (Milk Of Magnesi (02/20/17 00:45) Sennosides (Senokot) (02/20/17 00:45) Bisacodyl Supp (Dulcolax Supp) (02/20/17 00:45) Lactulose Liq (Lactulose Liq) (02/20/17 00:45) Inpatient Certification (02/20/17 ) Labs Laboratory Tests Test 02/19/17 22:40 White Blood Count 27.7 TH/MM3 Red Blood Count 5.06 MIL/MM3 Hemoglobin 14.3 GM/DL Hematocrit 42.8 % Mean Corpuscular Volume 84.6 FL Mean Corpuscular Hemoglobin 28.3 PG Mean Corpuscular Hemoglobin Concent 33.4 % Red Cell Distribution Width 17.6 % Platelet Count 356 TH/MM3 Mean Platelet Volume 8.0 FL Neutrophils (%) (Auto) 82.4 % Lymphocytes (%) (Auto) 10.3 % Monocytes (%) (Auto) 6.3 % Eosinophils (%) (Auto) 0.7 % Basophils (%) (Auto) 0.3 % Neutrophils # (Auto) 22.8 TH/MM3 Lymphocytes # (Auto) 2.9 TH/MM3 Monocytes # (Auto) 1.7 TH/MM3 Eosinophils # (Auto) 0.2 TH/MM3 Basophils # (Auto) 0.1 TH/MM3 CBC Comment DIFF FINAL Differential Comment Prothrombin Time 10.2 SEC Prothromb Time International Ratio 1.0 RATIO Activated Partial Thromboplast Time 24.0 SEC Urine Color DARK-YELLOW Urine Turbidity HAZY Urine pH 6.0 Urine Specific [place] 1.048 Urine Protein 100 mg/dL Urine Glucose (UA) TRACE mg/dL Urine Ketones TRACE mg/dL Urine Occult Blood NEG Urine Nitrite NEG Urine Bilirubin NEG Urine Urobilinogen 2.0 MG/DL Urine Leukocyte Esterase NEG Urine RBC LESS THAN 1 /hpf Urine WBC 6 /hpf Urine Squamous Epithelial Cells 8 /hpf Urine Hyaline Casts 2 /lpf Urine Mucus MANY /lpf Microscopic Urinalysis Comment CULT NOT INDICATED Blood Urea Nitrogen 11 MG/DL Creatinine 0.68 MG/DL Random Glucose 131 MG/DL Total Protein 7.5 GM/DL Albumin 3.3 GM/DL Calcium Level 9.2 MG/DL Magnesium Level 1.0 MG/DL Alkaline Phosphatase 143 U/L Aspartate Amino Transf (AST/SGOT) 16 U/L Alanine Aminotransferase (ALT/SGPT) 22 U/L Total Bilirubin 0.2 MG/DL Sodium Level 137 MEQ/L Potassium Level 3.1 MEQ/L Chloride Level 100 MEQ/L Carbon Dioxide Level 27.2 MEQ/L Anion Gap 10 MEQ/L Estimat Glomerular Filtration Rate 90 ML/MIN Total Creatine Kinase 56 U/L Troponin I LESS THAN 0.02 NG/ML C-Reactive Protein LESS THAN 0.29 MG/DL Lipase 98 U/L MDM Medical Decision Making Medical Screen Exam Complete: Yes Emergency Medical Condition: Yes Medical Record Reviewed: Yes Differential Diagnosis Bowel obstruction, versus pancreatitis, versus acute coronary syndrome, versus gastroenteritis, versus viral syndrome Narrative Course During the course of the patients emergency department visit, the patients history, examination, and differential diagnosis were reviewed with the patient. The patient was placed on a monitoring specialist with oximetry and frequent blood pressure monitoring. The patient had IV access obtained and blood work sent for analysis. The patient was brought in by ambulance services and was given Zofran 4 mg IV 1 prior to arrival. The patient had an ECG done on arrival that shows a sinus rhythm heart rate of 99, borderline left axis deviation, QRS duration is 81 ms, QTC 407 ms, no acute ST segment elevation or depression. T waves are inverted in V1. The patient was initially provided normal saline a 500 mL bolus 1, morphine for pain, Zofran for nausea. The patients laboratory studies were reviewed and remarkable for a white count of 27.7, hemoglobin 14.3, platelets 356 with neutrophils 82.4. The patient met SIRS criteria with a possible source of infection that is intra-abdominal. The patient had blood cultures 2 sent, lactic acid sent for analysis. The patient was started on broad-spectrum antibiotic for possible intra-abdominal source. CMP was remarkable for potassium of 3.1, glucose 131, magnesium 1.0 which will be supplemented IV, alkaline phosphatase 143, CPK 56, troponin I less than 0.02 , C-reactive protein less than 0.29, lipase 98, PT 10.2, PTT 24, urinalysis shows concentrated urine with a specific gravity 1.048, trace ketones, 6 WBCs, many mucous otherwise unremarkable. Radiology studies were reviewed and remarkable for a CT scan of the abdomen and pelvis that shows a suspected small bowel obstruction with possible transition point at the junction between the mid and distal small bowel in the pelvis, appears to be an area of focal narrowed small bowel in this region, hepatic steatosis is also noted. Chest x-ray showed no acute abnormality. The patient was started on potassium supplementation IV. The patient had an NG tube placed to low intermittent suction per the request of the admitting physician. The patients results were discussed with the patient, including the plan of care. I explained that further testing and/ or monitoring is indicated based on the patients history, examination, and/ or laboratory findings. Therefore, I recommended admission for additional evaluation. The patient expressed understanding and was agreeable with this plan. The patient was admitted to the hospital in guarded condition and sent to a bed under the care of the [facility] service. Sepsis Criteria SIRS Criteria (2 or more): Heart rate over 90, RR > 20 or PaCO2 < 32, WBC > 87327, < 4000 or > 10% bands Sepsis Criteria (SIRS+source): Infect source susp/known Criteria Outcome: Meets SIRS criteria, Meets sepsis criteria Physician Communication Physician Communication The patient's case including history, pertinent physical examination findings, and laboratory studies were discussed with Dr. Granger. It was agreed that the patient would be admitted to the [facility] service. Diagnosis Primary Impression: Abdominal pain Qualified Codes: R10.13 - Epigastric pain Additional Impressions: Vomiting Qualified Codes: R11.2 - Nausea with vomiting, unspecified Bowel obstruction Qualified Codes: K56.691 - Other complete intestinal obstruction Admitting Information Admitting Physician Requests: Admit Margie Ogden MD Feb 19, 2017 22:34
--- NOTE | 2017-02-19 22:52 | RADRPT ---
EXAM DATE/TIME: 02/19/2017 22:45 [facility] COMPARISON: CHEST SINGLE AP, October 17, 2016, 2:05. INDICATIONS : Chest pain, vomiting MEDICAL HISTORY : None. SURGICAL HISTORY : None. ENCOUNTER: Initial ACUITY: 1 day PAIN SCORE: 8/10 LOCATION: Bilateral chest FINDINGS: A single view of the chest demonstrates the lungs to be symmetrically aerated without evidence of mas s, infiltrate or effusion. The cardiomediastinal contours are unremarkable. Osseous structures are intact. CONCLUSION: No acute disease. Richard Wilburn MD on February 19, 2017 at 22:50 Board Certified Radiologist. This report was verified electronically.
[2017-02-19 23:05] LABS: AUTOMATED NEUTROPHIL # 22.8 TH/MM3 (1.8-7.7); BASOPHIL # 0.1 TH/MM3 (0-0.2); BASOPHIL % 0.3 % (0.0-2.0); EOSINOPHIL # 0.2 TH/MM3 (0-0.4); EOSINOPHIL % 0.7 % (0.0-4.0); HEMATOCRIT 42.8 % (35.0-46.0); HEMO FLAGS DIFF FINAL; LYMPH % 10.3 % (9.0-44.0); LYMPHOCYTE # 2.9 TH/MM3 (1.0-4.8); MEAN CELL VOLUME 84.6 FL (80.0-100.0); MEAN CORPUSCULAR HEMOGLOBIN 28.3 PG (27.0-34.0); MEAN CORPUSCULAR HGB CONC 33.4 % (32.0-36.0); MONO % 6.3 % (0.0-8.0); NEUT % 82.4 % (16.0-70.0); PLATELET COUNT 356 TH/MM3 (150-450); RED BLOOD COUNT 5.06 MIL/MM3 (4.00-5.30); RED CELL DISTRIBUTION WIDTH 17.6 % (11.6-17.2); WHITE BLOOD COUNT 27.7 TH/MM3 (4.0-11.0)
[2017-02-19 23:17] LABS: PROTHROMBIN TIME - PATIENT 10.2 SEC (9.8-11.6)
[2017-02-19 23:29] LABS: ANION GAP 10 MEQ/L (5-15); AST (GOT) 16 U/L (15-37); BICARBONATE 27.2 MEQ/L (21.0-32.0); BLOOD UREA NITROGEN 11 MG/DL (7-18); CHLORIDE 100 MEQ/L (98-107); GLOMERULAR FILTRATION RATE 90 ML/MIN (>89); POTASSIUM 3.1 MEQ/L (3.5-5.1); SODIUM (NA) 137 MEQ/L (136-145)
[2017-02-19 23:31] LABS: ALKALINE PHOSPHATASE 143 U/L (45-117); ALT (GPT) 22 U/L (10-53); TOTAL BILIRUBIN ADULT 0.2 MG/DL (0.2-1.0)
[2017-02-19 23:34] LABS: CREATINE KINASE 56 U/L (26-192)
[2017-02-19 23:41] LABS: BLOOD, URINE NEG (NEG); GLUCOSE,URINE TRACE mg/dL (NEG); HYALINE CAST, URINE 2 /lpf (RARE); KETONE, URINE TRACE mg/dL (NEG); MUCUS URINE MANY /lpf (OCC); NITRITE,URINE NEG (NEG); SQUAMOUS EPITHELIAL CELL URINE 8 /hpf (0-5); URINE COLOR DARK-YELLOW (YELLW/STRAW)
[2017-02-19 23:44] LABS: COMMENT (UR) CULT NOT INDICATED; CULTURE IF INDICATED CULT NOT INDICATED
[2017-02-19] MEDS ORDERED: MORPHINE SULFATE 4 MG/ML INJ IV PUSH ONE (23:45)
[2017-02-19] MEDS ORDERED: SODIUM CHLORID 0.9% 500 ML INJ 500 ML IV ONE (23:45)
[2017-02-19] MEDS ORDERED: ONDANSETRON HCL 4 MG/2 ML VIAL IV ONE (23:45)
[2017-02-19] MEDS ORDERED: IOHEXOL 350 MG/ML 10 ML VIAL (for RAD DIAG) IVCONTRAST ONE (23:59)
[2017-02-20] MEDS ORDERED: metroNIDAZOLE 500 MG INJ 100 ML IV SCH
[2017-02-20] MEDS ORDERED: SODIUM CHLOR 0.9% 1000 ML INJ 1,000 ML IV ONE
--- NOTE | 2017-02-20 00:16 | RADRPT ---
EXAM DATE/TIME: 02/19/2017 23:56 [facility] COMPARISON: No previous studies available for comparison. INDICATIONS : Abdominal pain; possible obstruction. IV CONTRAST: 96 cc Omnipaque 350 (iohexol) IV ORAL CONTRAST: No oral contrast ingested. RADIATION DOSE: 13.58 CTDIvol (mGy) MEDICAL HISTORY : Hypertension. Gastroesophageal reflux disease. Chronic obstructive pulmonary disease.Asthma, Hep B & C, Diabetes SURGICAL HISTORY : Hysterectomy. Cholecystectomy.Right hip replacement, Right lumpectomy ENCOUNTER: Initial ACUITY: 1 day PAIN SCALE: 6/10 LOCATION: abdomen TECHNIQUE: Volumetric scanning of the abdomen and pelvis was performed. Using automated exposure control and ad justment of the mA and/or kV according to patient size, radiation dose was kept as low as reasonably achievable to obtain optimal diagnostic quality images. DICOM format image data is available electro nically for review and comparison. FINDINGS: LOWER LUNGS: There is a calcified granuloma at the right lung base. LIVER: There is diffuse decreased attenuation to the liver. No focal hepatic lesion is seen. The patient is status post cholecystectomy. SPLEEN: Normal size without lesion. PANCREAS: Within normal limits. KIDNEYS: Normal in size and shape. There is no mass, stone or hydronephrosis. ADRENAL GLANDS: Within normal limits. VASCULAR: There is no aortic aneurysm. There are scattered vascular calcifications present. BOWEL/MESENTERY: The proximal and mid small bowel is distended. There appears to be a possible transition point in the pelvis at the junction between the mid and distal small bowel. There is a focal area of narrowing of the lumen. There is debris in the mid and distal small bowel. The colon is not distended. There are scattered colonic diverticula. ABDOMINAL WALL: Within normal limits. RETROPERITONEUM: There is no lymphadenopathy. BLADDER: No wall thickening or mass. REPRODUCTIVE: The patient appears to be status post hysterectomy. INGUINAL: There is no lymphadenopathy or hernia. MUSCULOSKELETAL: There is a right hip prosthesis causing streak artifact in the pelvis. There is degenerative change i n the lumbar spine. CONCLUSION: 1. Suspected small bowel obstruction with a possible transition point at the junction between the mid and distal small bowel the pelvis. There appears to be area of focal narrowed small bowel in this re gion 2. Hepatic steatosis. Richard Wilburn MD on February 20, 2017 at 0:05 Board Certified Radiologist. This report was verified electronically.
[2017-02-20] MEDS ORDERED: SENNOSIDES 8.6 MG TAB PO PRN (00:45)
[2017-02-20] MEDS ORDERED: MORPHINE SULFATE 4 MG/ML INJ IV PUSH PRN ×2 (00:45)
[2017-02-20] MEDS ORDERED: ACETAMINOPHEN 1000 MG/100 ML 100 ML IV PRN (00:45)
[2017-02-20] MEDS ORDERED: BISACODYL 10 MG SUPP RECTAL PRN (00:45)
[2017-02-20] MEDS ORDERED: SODIUM CHLORIDE 0.9% FLUSH 10 ML FLUSH IV FLUSH PRN (00:45)
[2017-02-20] MEDS ORDERED: POTASSIUM CHLOR 20 MEQ PREMIX 100 ML IV ONE (00:45)
[2017-02-20] MEDS ORDERED: GLUCAGON 1 MG/ML VIAL OTHER PRN (00:45)
[2017-02-20] MEDS ORDERED: DEXTROSE 50% IN WATER 50 ML VIAL(D50) IV PUSH PRN (00:45)
[2017-02-20] MEDS ORDERED: MAGNESIUM HYDROXIDE SUSP 30 ML CUP PO PRN (00:45)
[2017-02-20] MEDS ORDERED: LACTULOSE SYRUP 20 GM/30 ML CUP PO PRN (00:45)
[2017-02-20] MEDS ORDERED: MAGNESIUM SULFATE 1 GM PREMIX 100 ML IV ONE (01:00)
[2017-02-20] MEDS ORDERED: metroNIDAZOLE 500 MG INJ 100 ML IV ONE (01:15)
[2017-02-20] MEDS ORDERED: MORPHINE SULFATE 4 MG/ML INJ IV PUSH ONE (01:15)
[2017-02-20] MEDS: SODIUM CHLOR 0.9% 1000 ML INJ 1,000 ML IV SCH ×2 (01:30→10:01)
[2017-02-20] MEDS ORDERED: AZTREONAM INJ 2,000 MG in SODIUM CHLORIDE 0.9% INJ 100 ML IV SCH ×3 (02:00)
--- NOTE | 2017-02-20 02:37 | HHI.HP ---
[facility] Admission Diagnosis Small bowel obstruction Diagnoses: (1) Sepsis Diagnosis: Principal (2) SBO (small bowel obstruction) Diagnosis: Principal (3) Intractable nausea and vomiting Diagnosis: Principal (4) Hypokalemia Diagnosis: Principal (5) DM (diabetes mellitus) Diagnosis: Principal (6) Tobacco abuse Diagnosis: Principal Travel History International Travel<30 Days: No Contact w/Intl Traveler <30 Da: No Traveled to Known Affected Are: No History of Present Illness This is a 56-year-old female with a PMH of Anxiety, Depression, Bipolar Disorder , Hepatitis C, HTN, Hyperlipidemia, COPD, GERD and Tobacco Abuse who presented to the ER with complaints of abdominal pain in addition to nausea/vomiting starting yesterday morning. Reports approx 20-30 episodes of vomiting since symptoms began, unable to take PO. Denies fever, chills, diarrhea or sick contacts. On arrival, BP 144/96, HR 106, O2 sat 93% on RA, Afebrile. WBC 27. K+ 3.1. Lactic Acid 1.7. Lipase 98. INR 1.0. UA negative. CXR with no acute findings. CT Abd/Pelvis w/ suspected small bowel obstruction w/ possible transition point. S/p NGT in ER in addition to IV Abx, Blood Cultures. Review of Systems Except as stated in HPI: all other systems reviewed are Neg ROS: 14 point review of systems otherwise negative. Past Family Social History Past Medical History PMH: Anxiety, Depression, Bipolar Disorder, Hepatitis C, HTN, Hyperlipidemia, COPD, GERD and Tobacco Abuse Past Surgical History PAST SURGICAL HISTORY: , Hysterectomy, Right Hip Replacement, Cholecystectomy, Breast Lumpectomy Allergies: Coded Allergies: penicillin G (Unverified Allergy, Severe, THROAT SWELLS CLOSED, 02/19/17) Family History PAST FAMILY HISTORY: Reviewed. No h/o DM or CAD Social History PAST SOCIAL HISTORY: Negative for alcohol or drugs. Positive for tobacco. Physical Exam Vital Signs Vital Signs Date Time Temp Pulse Resp B/P (MAP) Pulse Ox O2 Delivery O2 Flow Rate FiO2 02/19/17 22:20 98.4 108 26 144/96 (609) 93 Physical Exam PE: GENERAL: Middle-aged female in no acute distress. HEENT: PERRLA, EOMI. No scleral icterus or conjunctival pallor. No lid lag or facial droop. CARDIOVASCULAR: Regular rate and rhythm. No obvious murmurs to auscultation. No chest tenderness to palpation. RESPIRATORY: No obvious rhonchi or wheezing. Clear to auscultation. Breath sounds equal bilaterally. GASTROINTESTINAL: Abdomen soft, generalized tenderness to palpation, nondistended. BS normal. MUSCULOSKELETAL: Extremities without clubbing, cyanosis, or edema. No obvious deformities. NEUROLOGICAL: Awake, alert and oriented x4. No focal neurologic deficits. Moving both upper and lower extremities spontaneously. Laboratory Laboratory Tests Test 02/19/17 22:40 02/20/17 00:50 White Blood Count 27.7 Red Blood Count 5.06 Hemoglobin 14.3 Hematocrit 42.8 Mean Corpuscular Volume 84.6 Mean Corpuscular Hemoglobin 28.3 Mean Corpuscular Hemoglobin Concent 33.4 Red Cell Distribution Width 17.6 Platelet Count 356 Mean Platelet Volume 8.0 Neutrophils (%) (Auto) 82.4 Lymphocytes (%) (Auto) 10.3 Monocytes (%) (Auto) 6.3 Eosinophils (%) (Auto) 0.7 Basophils (%) (Auto) 0.3 Neutrophils # (Auto) 22.8 Lymphocytes # (Auto) 2.9 Monocytes # (Auto) 1.7 Eosinophils # (Auto) 0.2 Basophils # (Auto) 0.1 CBC Comment DIFF FINAL Differential Comment Prothrombin Time 10.2 Prothromb Time International Ratio 1.0 Activated Partial Thromboplast Time 24.0 Urine Color DARK-YELLOW Urine Turbidity HAZY Urine pH 6.0 Urine Specific [place] 1.048 Urine Protein 100 Urine Glucose (UA) TRACE Urine Ketones TRACE Urine Occult Blood NEG Urine Nitrite NEG Urine Bilirubin NEG Urine Urobilinogen 2.0 Urine Leukocyte Esterase NEG Urine RBC LESS THAN 1 Urine WBC 6 Urine Squamous Epithelial Cells 8 Urine Hyaline Casts 2 Urine Mucus MANY Microscopic Urinalysis Comment CULT NOT INDICATED Blood Urea Nitrogen 11 Creatinine 0.68 Random Glucose 131 Total Protein 7.5 Albumin 3.3 Calcium Level 9.2 Magnesium Level 1.0 Alkaline Phosphatase 143 Aspartate Amino Transf (AST/SGOT) 16 Alanine Aminotransferase (ALT/SGPT) 22 Total Bilirubin 0.2 Sodium Level 137 Potassium Level 3.1 Chloride Level 100 Carbon Dioxide Level 27.2 Anion Gap 10 Estimat Glomerular Filtration Rate 90 Total Creatine Kinase 56 Troponin I LESS THAN 0.02 C-Reactive Protein LESS THAN 0.29 Lipase 98 Lactic Acid Level 1.7 Date/Time Source Procedure Growth Status 02/20/17 00:55 Blood Peripheral Aerobic Blood Culture Pending Received 02/20/17 00:55 Blood Peripheral Anaerobic Blood Culture Pending Received Result Diagram: 02/19/17223902/19/172239 Caprini VTE Risk Assessment Caprini VTE Risk Assessment: No/Low Risk (score <= 1) Caprini Risk Assessment Model Point Value = 1 Point Value = 2 Point Value = 3 Point Value = 5 Age 41-60 Minor surgery BMI > 25 kg/m2 Swollen legs Varicose veins or History of unexplained or recurrent spontaneous Oral contraceptives or hormone replacement Sepsis (< 1 month) Serious lung disease, including pneumonia (< 1 month) Abnormal pulmonary function Acute myocardial infarction Congestive heart failure (< 1 month) History of inflammatory bowel disease Medical patient at bed rest Age 61-74 Arthroscopic surgery Major open surgery (> 45 min) Laparoscopic surgery (> 45 min) Malignancy Confined to bed (> 72 hours) Immobilizing plaster cast Central venous access Age >= 75 History of VTE Family history of VTE Factor V Leiden Prothrombin [id number] Lupus anticoagulant Anticardiolipin antibodies Elevated serum homocysteine Heparin-induced thrombocytopenia Other congenital or acquired thrombophilia Stroke (< 1 month) Elective arthroplasty Hip, pelvis, or leg fracture Acute spinal cord injury (< 1 month) Prophylaxis Regimen Total Risk Factor Score Risk Level Prophylaxis Regimen 0-1 Low Early ambulation 2 Moderate Order ONE of the following: *Sequential Compression Device (SCD) *Heparin 5000 units SQ BID 3-4 Higher Order ONE of the following medications: *Heparin 5000 units SQ TID *Enoxaparin/Lovenox 40 mg SQ daily (WT < 150 kg, CrCl > 30 mL/min) *Enoxaparin/Lovenox 30 mg SQ daily (WT < 150 kg, CrCl > 10-29 mL/min) *Enoxaparin/Lovenox 30 mg SQ BID (WT < 150 kg, CrCl > 30 mL/min) AND/OR *Sequential Compression Device (SCD) 5 or more Highest Order ONE of the following medications: *Heparin 5000 units SQ TID (Preferred with Epidurals) *Enoxaparin/Lovenox 40 mg SQ daily (WT < 150 kg, CrCl > 30 mL/min) *Enoxaparin/Lovenox 30 mg SQ daily (WT < 150 kg, CrCl > 10-29 mL/min) *Enoxaparin/Lovenox 30 mg SQ BID (WT < 150 kg, CrCl > 30 mL/min) AND *Sequential Compression Device (SCD) Assessment and Plan Problem List: (1) Sepsis ICD Code: A41.9 - Sepsis, unspecified organism (2) SBO (small bowel obstruction) ICD Code: K56.609 - Unspecified intestinal obstruction, unspecified as to partial versus complete obstruction (3) Intractable nausea and vomiting ICD Code: R11.2 - Nausea with vomiting, unspecified (4) Hypokalemia ICD Code: E87.6 - Hypokalemia (5) DM (diabetes mellitus) ICD Code: E11.9 - Type 2 diabetes mellitus without complications (6) Tobacco abuse ICD Code: Z72.0 - Tobacco use Status: Acute Assessment and Plan A/P: 1. Sepsis: HR 108, RR 26, WBC 27, meets Sepsis criteria, however suspect due to SBO w/ Intractable NV rather than true infection. S/p Blood Cultures, IV Vanc/Flagyl/Azactam in ER. Follow up cultures, continue w/ IV Abx. 2. SBO: acute onset of abdominal pain w/ nausea/vomiting x20-30 since yesterday, multiple abdominal surgeries. CT Abd/Pelvis w/ suspected small bowel obstruction, images reviewed by me. NGT in ER, NPO, IVF, convert meds to IV, Consult Gen Sx for further eval. 3. Intractable NV: secondary to above, now improved after antiemetics, will continue. NGT, IVF. 4. DM: Sliding scale w/ Accu-Cheks. Hold home Metformin/Insulin for now 5. Tobacco Abuse: Pt counselled. NicoDerm prn if needed. 6. DVT Prophylaxis: SCD/Teds. 7. Social work for d/c planning as needed. 8. Case discussed w/ ER physician at length. Physician Certification 2 Midnight Certification Type: Admission for Inpatient Services Order for Inpatient Services The services are ordered in accordance with Medicare regulations or non- Medicare payer requirements, as applicable. In the case of services not specified as inpatient-only, they are appropriately provided as inpatient services in accordance with the 2-midnight benchmark. Estimated LOS (days): 2 days is the estimated time the patient will need to remain in the hospital, assuming treatment plan goals are met and no additional complications. Post-Hospital Plan: Not yet determined Elena Granger MD Feb 20, 2017 02:37
[2017-02-20] MEDS ORDERED: VANCOMYCIN INJ 1,000 MG in SODIUM CHLOR 0.9% 250 ML INJ 250 ML IV SCH ×3 (03:00)
[2017-02-20 03:40] VITALS: BP 134/90; PULSE 94; RESP 19; TEMP 98.4; O2SAT 94
[2017-02-20] MEDS: MORPHINE SULFATE 2 MG/ML INJ IV PRN ×4 (04:40→22:18)
[2017-02-20] MEDS: ONDANSETRON HCL 4 MG/2 ML VIAL IVP PRN ×2 (04:40→14:19)
[2017-02-20 08:00] VITALS: BP 187/106; PULSE 97; RESP 18; TEMP 97.4; O2SAT 66
[2017-02-20] MEDS: INSULIN ASPART SUPPLEMENTAL SCALE SQ SCH ×4 (08:00→21:00)
[2017-02-20] MEDS: DOCUSATE SODIUM 50 MG/SENNA 8.6 MG TAB PO SCH ×2 (09:00→22:17)
[2017-02-20] MEDS: SODIUM CHLORIDE 0.9% FLUSH 10 ML FLUSH IV FLUSH SCH ×2 (09:00→21:00)
[2017-02-20 09:24] VITALS: PULSE 97
[2017-02-20] MEDS: metroNIDAZOLE 500 MG INJ 100 ML IV SCH ×2 (09:28→18:01)
[2017-02-20] MEDS: LORazepam 2 MG/ML VIAL IV PUSH PRN ×2 (09:52→16:15)
[2017-02-20] MEDS: ENALAPRILAT 2.5 MG/2 ML VIAL IV PUSH PRN ×2 (09:55→18:29)
[2017-02-20 12:00] VITALS: BP 154/100; PULSE 95; RESP 18; TEMP 98.4; O2SAT 89
[2017-02-20] MEDS: CIPROFLOXACIN 400 MG PREMIX 200 ML IV SCH (14:15)
[2017-02-20 16:00] VITALS: BP 167/107; PULSE 90; RESP 18; TEMP 97.3; O2SAT 94
--- NOTE | 2017-02-20 17:35 | EKG ---
Date Performed: 02/19/2017 Time Performed: 23:00:16 PTAGE: 56 years EKG: Sinus rhythm BORDERLINE LEFT AXIS DEVIATION Since previous tracing, no significant change noted BORDERLINE ECG PREVIOUS TRACING : 10/17/2016 08.15 DOCTOR: Braden Bcah Interpretating Date/Time 02/20/2017 17:35:04
--- NOTE | 2017-02-20 18:22 | PD.CONS ---
cc: Toñito Perry MD [facility] Service CONSULTATION NOTE FOR SURGICAL ATTENDING, DR. TOÑITO PERRY General Surgery Consult Requested By Dr. Herzog Reason for Consult Small bowel obstruction Primary Care Physician Unknown History of Present Illness This is a 56-year-old female with a past medical history of anxiety, depression , bipolar disease, hypertension, high cholesterol, COPD, GERD, tobacco use and diabetes mellitus. The patient developed acute onset of abdominal pain with associated nausea vomiting about 10 minutes after eating a slice of ham. She denies any sick contacts. She denies eating anything unusual. She arrived to the Emergency Department with an elevated white blood cell count 27.7 and her potassium was low at 3.1. A CT abdomen and pelvis was obtained which is a suspected small bowel obstruction with possible transition point. Since admission the patient has had a bowel movement. She feels hungry. She would like to try something to drink. She does take opioids chronically and uses stool softeners as needed. A General Surgery consultation has been requested. Review of Systems Constitutional: DENIES: Fatigue, Change in appetite Endocrine: DENIES: Polydipsia, Polyuria, Polyphagia Eyes: DENIES: Diplopia Ears, nose, mouth, throat: DENIES: Hearing loss Respiratory: DENIES: Cough, Snoring Cardiovascular: DENIES: Palpitations Gastrointestinal: COMPLAINS OF: Abdominal pain, Constipation, Nausea, Vomiting Genitourinary: DENIES: Urinary frequency Musculoskeletal: DENIES: Muscle aches Integumentary: DENIES: Abnormal pigmentation Hematologic/lymphatic: DENIES: Bruising Immunologic/allergic: DENIES: Eczema Neurologic: DENIES: Abnormal gait, Headache Psychiatric: DENIES: Mood changes, Depression Past Family Social History Past Medical History Anxiety Depression Bipolar Hypertension High cholesterol COPD Current Tobacco use Diabetes mellitus Past Surgical History 2 laparoscopic cholecystectomy Reported Medications This is extensive please see chart; patient denies any anticoagulation Allergies: Coded Allergies: penicillin G (Unverified Allergy, Severe, THROAT SWELLS CLOSED, 02/19/17) Active Ordered Medications Current Medications Medications (Trade) Dose Ordered Sig/Mayo Route Start Time Stop Time Status Last Admin (D50w (Vial) Inj) 50 ml UNSCH PRN IV PUSH 02/20/17 00:45 (Glucagon Inj) 1 mg UNSCH PRN OTHER 02/20/17 00:45 (NovoLOG SUPPLEMENTAL SCALE) 1 ACHS SLIDING SCALE SQ 02/20/17 08:00 Ciprofloxacin/ Dextrose 200 ml @ 200 mls/hr Q12H IV 02/20/17 12:00 02/20/17 14:15 Metronidazole 100 ml @ 100 mls/hr Q8H IV 02/20/17 09:00 02/20/17 09:28 Sodium Chloride 1,000 ml @ 100 mls/hr Q10H IV 02/20/17 00:44 02/20/17 01:30 (NS Flush) 2 ml UNSCH PRN IV FLUSH 02/20/17 00:45 (NS Flush) 2 ml BID IV FLUSH 02/20/17 09:00 02/20/17 09:00 (Zofran Inj) 4 mg Q6H PRN IVP 02/20/17 00:45 02/20/17 14:19 Acetaminophen 100 ml @ 400 mls/hr Q6H PRN IV 02/20/17 00:45 (Reyna-Colace) 1 tab BID PO 02/20/17 09:00 02/20/17 09:00 (Milk Of Magnesia Liq) 30 ml Q12H PRN PO 02/20/17 00:45 (Senokot) 17.2 mg Q12H PRN PO 02/20/17 00:45 (Dulcolax Supp) 10 mg DAILY PRN RECTAL 02/20/17 00:45 (Lactulose Liq) 30 ml DAILY PRN PO 02/20/17 00:45 (Morphine Inj) 1 mg Q3H PRN IV 02/20/17 01:15 02/20/17 09:27 (Morphine Inj) 1 mg Q3H PRN IV 02/20/17 01:15 (Vasotec Inj) 2.5 mg Q6H PRN IV PUSH 02/20/17 09:45 02/20/17 09:55 (Ativan Inj) 0.5 mg Q6H PRN IV PUSH 02/20/17 09:45 02/20/17 16:15 Family History Positive family history for diabetes mellitus. No family history of esophagus, colon or rectal cancers. Social History Positive for tobacco Denies EtOH use Denies illicit drug use Physical Exam Vital Signs Vital Signs Date Time Temp Pulse Resp B/P (MAP) Pulse Ox O2 Delivery O2 Flow Rate FiO2 02/20/17 16:00 97.3 90 18 167/107 (127) 94 02/20/17 12:00 98.4 95 18 154/100 (118) 89 02/20/17 08:00 97.4 97 18 187/106 (133) 66 02/20/17 05:20 02/20/17 03:40 98.4 94 19 134/90 (105) 94 Room Air 02/19/17 22:20 98.4 108 26 144/96 (112) 93 Physical Exam GENERAL: Pleasant 56-year-old female resting in bed in no acute distress. SKIN: Warm and dry. HEAD: Atraumatic. Normocephalic. EYES: Pupils equal and round. No scleral icterus. No injection or drainage. ENT: No nasal bleeding or discharge. Mucous membranes pink and moist. NECK: Trachea midline. CARDIOVASCULAR: Regular rate and rhythm. RESPIRATORY: No accessory muscle use. Clear to auscultation. Breath sounds equal bilaterally. GASTROINTESTINAL: Abdomen soft, non-tender, nondistended. Laparoscopic well- healed incisions; well-healed low transverse incision. MUSCULOSKELETAL: Extremities without clubbing, cyanosis, or edema. No obvious deformities. NEUROLOGICAL: Awake and alert. No obvious cranial nerve deficits. Motor grossly within normal limits. Five out of 5 muscle strength in the arms and legs. Normal speech. PSYCHIATRIC: Appropriate mood and affect; insight and judgment normal. Laboratory Laboratory Tests Test 02/19/17 22:40 02/20/17 00:50 White Blood Count 27.7 Red Blood Count 5.06 Hemoglobin 14.3 Hematocrit 42.8 Mean Corpuscular Volume 84.6 Mean Corpuscular Hemoglobin 28.3 Mean Corpuscular Hemoglobin Concent 33.4 Red Cell Distribution Width 17.6 Platelet Count 356 Mean Platelet Volume 8.0 Neutrophils (%) (Auto) 82.4 Lymphocytes (%) (Auto) 10.3 Monocytes (%) (Auto) 6.3 Eosinophils (%) (Auto) 0.7 Basophils (%) (Auto) 0.3 Neutrophils # (Auto) 22.8 Lymphocytes # (Auto) 2.9 Monocytes # (Auto) 1.7 Eosinophils # (Auto) 0.2 Basophils # (Auto) 0.1 CBC Comment DIFF FINAL Differential Comment Prothrombin Time 10.2 Prothromb Time International Ratio 1.0 Activated Partial Thromboplast Time 24.0 Urine Color DARK-YELLOW Urine Turbidity HAZY Urine pH 6.0 Urine Specific [place] 1.048 Urine Protein 100 Urine Glucose (UA) TRACE Urine Ketones TRACE Urine Occult Blood NEG Urine Nitrite NEG Urine Bilirubin NEG Urine Urobilinogen 2.0 Urine Leukocyte Esterase NEG Urine RBC LESS THAN 1 Urine WBC 6 Urine Squamous Epithelial Cells 8 Urine Hyaline Casts 2 Urine Mucus MANY Microscopic Urinalysis Comment CULT NOT INDICATED Blood Urea Nitrogen 11 Creatinine 0.68 Random Glucose 131 Total Protein 7.5 Albumin 3.3 Calcium Level 9.2 Magnesium Level 1.0 Alkaline Phosphatase 143 Aspartate Amino Transf (AST/SGOT) 16 Alanine Aminotransferase (ALT/SGPT) 22 Total Bilirubin 0.2 Sodium Level 137 Potassium Level 3.1 Chloride Level 100 Carbon Dioxide Level 27.2 Anion Gap 10 Estimat Glomerular Filtration Rate 90 Total Creatine Kinase 56 Troponin I LESS THAN 0.02 C-Reactive Protein LESS THAN 0.29 Lipase 98 Lactic Acid Level 1.7 Date/Time Source Procedure Growth Status 02/20/17 00:55 Blood Peripheral Aerobic Blood Culture Pending Received 02/20/17 00:55 Blood Peripheral Anaerobic Blood Culture Pending Received Result Diagram: 02/19/17223902/19/172239 Imaging Last Impressions Chest X-Ray 02/19/172225 Signed Impressions: Service Date/Time: Sunday, February 19, 2017 22:45 - CONCLUSION: No acute disease. Richard Wilburn MD Abdomen/Pelvis CT 02/19/172225 Signed Impressions: Service Date/Time: Sunday, February 19, 2017 23:56 - CONCLUSION: 1. Suspected small bowel obstruction with a possible transition point at the junction between the mid and distal small bowel the pelvis. There appears to be area of focal narrowed small bowel in this region 2. Hepatic steatosis. Richard Wilburn MD Assessment and Plan Assessment and Plan 56-year-old female with abdominal pain; questionable small bowel obstruction on CT scan -+BM -Start clear liquids; will advance if tolerates tomorrow -IVF -Continue all home medications -OOB and mobilize -Likely will be able to treat non-surgical -Thank you for this consult; We will continue to follow Discussed Condition With Dr. Orlando Arceo Attending Statement NOTE FOR SURGICAL ATTENDING, DR. TOÑITO PERRY Since being administered at hospital the patient has passed flatus and had a bowel movement and her abdominal pain has completely resolved. I think her ileus is resolving. Her abdominal exam is completely benign during my examination I do not have a good source for her white count of 27,000 although she tells me recently she was diagnosed with rheumatoid arthritis and her blood test was "very high" She does not appear to have a intra-abdominal source for this white count. We'll follow advance diet and activities as tolerated I agree with above assessment and plan. The exam, history, and the medical decision-making described in the above note were completed with the assistance of the mid-level provider. I reviewed and agree with the findings presented. I attest that I had a [id number] encounter with the patient on the same day, and personally performed and documented my assessment and findings in the medical record. The following services were provided during this hospital visit: Chart data review, vital sign assessments/reviewing monitor data Review of consultations notes if present. Medication orders/review and/or management Ordering and/or reviewing lab tests Ordering and/or interpreting/reviewing x-rays and/or diagnostic studies Care of the patient and discussion of the patient with the care team Documentation time To help prompt me to consider important information that might be impacting today's encounter and assessment, information from prior notes written by myself or my colleagues may have been "brought forward/copy and pasted" into today's note. Adri Portillo Feb 20, 2017 18:22 Toñito Perry MD Feb 20, 2017 19:48
[2017-02-20 18:31] LABS: HEMATOCRIT 34.9 % (35.0-46.0); MEAN CELL VOLUME 85.2 FL (80.0-100.0); MEAN CORPUSCULAR HEMOGLOBIN 28.3 PG (27.0-34.0); MEAN CORPUSCULAR HGB CONC 33.2 % (32.0-36.0); PLATELET COUNT 302 TH/MM3 (150-450); RED CELL DISTRIBUTION WIDTH 17.3 % (11.6-17.2); REVIEW FLAG FINAL
[2017-02-20 19:03] LABS: BICARBONATE 26.2 MEQ/L (21.0-32.0); POTASSIUM 3.1 MEQ/L (3.5-5.1)
[2017-02-20 20:00] VITALS: BP 154/86; PULSE 84; RESP 22; TEMP 97.8; O2SAT 95
[2017-02-20] MEDS ORDERED: POTASSIUM CHLORIDE 25 MEQ EFFERVESCENT TAB PO ONE (22:45)
[2017-02-21] MEDS: CIPROFLOXACIN 400 MG PREMIX 200 ML IV SCH ×2 (00:23→11:59)
[2017-02-21] MEDS: ONDANSETRON HCL 4 MG/2 ML VIAL IVP PRN (00:23)
[2017-02-21 00:50] VITALS: BP 157/100; PULSE 82; RESP 22; TEMP 97.5; O2SAT 95
[2017-02-21] MEDS: metroNIDAZOLE 500 MG INJ 100 ML IV SCH ×2 (01:37→08:38)
[2017-02-21] MEDS: MORPHINE SULFATE 2 MG/ML INJ IV PRN ×4 (01:37→12:21)
[2017-02-21 04:50] VITALS: BP_SYST 144; BP_SYST 164; BP_DIAS 79; BP_DIAS 98; PULSE 85; PULSE 86; RESP 20; RESP 24; TEMP 97.5; TEMP 97.7; O2SAT 97
[2017-02-21] MEDS: ENALAPRILAT 2.5 MG/2 ML VIAL IV PUSH PRN ×2 (04:50→11:59)
[2017-02-21] MEDS: LORazepam 2 MG/ML VIAL IV PUSH PRN ×2 (04:50→11:57)
--- NOTE | 2017-02-21 06:27 | RADRPT ---
EXAM DATE/TIME: 02/21/2017 05:41 [place] COMPARISON: No previous studies available for comparison. INDICATIONS : Obstruction. MEDICAL HISTORY : Hypertension. Gastroesophageal reflux disease. Chronic obstructive pulmonary disease.Asthma, Hep B & C, Diabetes. SURGICAL HISTORY : Hysterectomy. Cholecystectomy.Right hip replacement, Right lumpectomy ENCOUNTER: Subsequent ACUITY: 2 days PAIN SCORE: Non-responsive. LOCATION: abdomen. FINDINGS: Supine view of the abdomen was performed. The abdominal bowel gas pattern is normal. No abnormal ma sses, calcifications, or organomegaly is seen. Clips are seen in the right upper quadrant. There is a right hip prosthesis present. There is some degenerative change of the lower thoracic and lower lum bar spine. CONCLUSION: No acute disease. Richard Wilburn MD on February 21, 2017 at 6:25 Board Certified Radiologist. This report was verified electronically.
[2017-02-21] MEDS: SODIUM CHLOR 0.9% 1000 ML INJ 1,000 ML IV SCH (06:44)
[2017-02-21 08:00] VITALS: BP 142/96; PULSE 97; RESP 18; TEMP 97.9; O2SAT 96
[2017-02-21] MEDS: INSULIN ASPART SUPPLEMENTAL SCALE SQ SCH ×2 (08:00→12:00)
[2017-02-21 08:34] LABS: AUTOMATED NEUTROPHIL # 4.6 TH/MM3 (1.8-7.7); BASOPHIL % 0.4 % (0.0-2.0); EOSINOPHIL # 0.2 TH/MM3 (0-0.4); EOSINOPHIL % 2.3 % (0.0-4.0); HEMATOCRIT 37.6 % (35.0-46.0); HEMO FLAGS DIFF FINAL; LYMPH % 29.9 % (9.0-44.0); LYMPHOCYTE # 2.3 TH/MM3 (1.0-4.8); MEAN CELL VOLUME 85.5 FL (80.0-100.0); MEAN CORPUSCULAR HGB CONC 32.7 % (32.0-36.0); NEUT % 60.4 % (16.0-70.0); PLATELET COUNT 299 TH/MM3 (150-450); RED BLOOD COUNT 4.41 MIL/MM3 (4.00-5.30); RED CELL DISTRIBUTION WIDTH 16.8 % (11.6-17.2); WHITE BLOOD COUNT 7.7 TH/MM3 (4.0-11.0)
[2017-02-21] MEDS: SODIUM CHLORIDE 0.9% FLUSH 10 ML FLUSH IV FLUSH SCH (08:38)
[2017-02-21] MEDS: DOCUSATE SODIUM 50 MG/SENNA 8.6 MG TAB PO SCH (08:38)
[2017-02-21 08:52] LABS: ANION GAP 8 MEQ/L (5-15); AST (GOT) 25 U/L (15-37); BICARBONATE 27.8 MEQ/L (21.0-32.0); BLOOD UREA NITROGEN 3 MG/DL (7-18); CHLORIDE 106 MEQ/L (98-107); GLOMERULAR FILTRATION RATE 106 ML/MIN (>89); POTASSIUM 3.7 MEQ/L (3.5-5.1); SODIUM (NA) 142 MEQ/L (136-145)
[2017-02-21 08:53] LABS: ALT (GPT) 23 U/L (10-53)
[2017-02-21 08:55] LABS: ALKALINE PHOSPHATASE 127 U/L (45-117); TOTAL BILIRUBIN ADULT 0.2 MG/DL (0.2-1.0)
[2017-02-21 12:00] VITALS: BP 127/71; PULSE 93; RESP 18; TEMP 98.1; O2SAT 95
--- NOTE | 2017-02-21 12:33 | HHI.PR ---
cc: Arturo Ortiz MD Subjective Subjective Notes DAILY PROGRESS NOTE FOR SURGICAL ATTENDING, DR. ARTURO ORTIZ Resting in bed C/o hand pain Feels anxious today Objective Vitals/I&O Vital Signs Date Time Temp Pulse Resp B/P (MAP) Pulse Ox O2 Delivery O2 Flow Rate FiO2 02/21/17 08:00 97.9 97 18 142/96 (111) 96 02/20/17 03:40 Room Air Labs Laboratory Tests Test 02/20/17 18:05 02/20/17 18:06 02/21/17 07:43 Blood Urea Nitrogen 5 3 Creatinine 0.52 0.59 Random Glucose 75 164 Calcium Level 8.0 8.6 Sodium Level 140 142 Potassium Level 3.1 3.7 Chloride Level 106 106 Carbon Dioxide Level 26.2 27.8 Anion Gap 8 8 Estimat Glomerular Filtration Rate 123 106 White Blood Count 8.0 7.7 Red Blood Count 4.10 4.41 Hemoglobin 11.6 12.3 Hematocrit 34.9 37.6 Mean Corpuscular Volume 85.2 85.5 Mean Corpuscular Hemoglobin 28.3 28.0 Mean Corpuscular Hemoglobin Concent 33.2 32.7 Red Cell Distribution Width 17.3 16.8 Platelet Count 302 299 Mean Platelet Volume 7.7 7.5 Neutrophils (%) (Auto) 60.4 Lymphocytes (%) (Auto) 29.9 Monocytes (%) (Auto) 7.0 Eosinophils (%) (Auto) 2.3 Basophils (%) (Auto) 0.4 Neutrophils # (Auto) 4.6 Lymphocytes # (Auto) 2.3 Monocytes # (Auto) 0.5 Eosinophils # (Auto) 0.2 Basophils # (Auto) 0.0 CBC Comment DIFF FINAL Differential Comment Total Protein 6.8 Albumin 2.9 Alkaline Phosphatase 127 Aspartate Amino Transf (AST/SGOT) 25 Alanine Aminotransferase (ALT/SGPT) 23 Total Bilirubin 0.2 Date/Time Source Procedure Growth Status 02/20/17 00:55 Blood Peripheral Aerobic Blood Culture - Preliminary NO GROWTH IN 1 DAY Resulted 02/20/17 00:55 Blood Peripheral Anaerobic Blood Culture - Preliminary NO GROWTH IN 1 DAY Resulted Radiology Last Impressions Abdomen X-Ray 02/21/17 0600 Signed Impressions: Service Date/Time: Tuesday, February 21, 2017 05:41 - CONCLUSION: No acute disease. Richard Wilburn MD Chest X-Ray 02/19/172225 Signed Impressions: Service Date/Time: Sunday, February 19, 2017 22:45 - CONCLUSION: No acute disease. Richard Wilburn MD Abdomen/Pelvis CT 02/19/172225 Signed Impressions: Service Date/Time: Sunday, February 19, 2017 23:56 - CONCLUSION: 1. Suspected small bowel obstruction with a possible transition point at the junction between the mid and distal small bowel the pelvis. There appears to be area of focal narrowed small bowel in this region 2. Hepatic steatosis. Richard Wilburn MD Last Impressions Chest X-Ray 02/19/172225 Signed Impressions: Service Date/Time: Sunday, February 19, 2017 22:45 - CONCLUSION: No acute disease. Richard Wilburn MD Abdomen/Pelvis CT 02/19/17 2226 Signed Impressions: Service Date/Time: Sunday, February 19, 2017 23:56 - CONCLUSION: 1. Suspected small bowel obstruction with a possible transition point at the junction between the mid and distal small bowel the pelvis. There appears to be area of focal narrowed small bowel in this region 2. Hepatic steatosis. Richard Wilburn MD Cardiovascular: Regular Lungs: Clear Abdomen: Non-distended, Non-tender Extremities: No edema A/P Assessment and Plan 56 year old female with abdominal pain; ?? SBO on CT abd/pelvis -KUB reviewed; no acute issues -Advance to regular diet -OOB and mobilize -DC IVF -Continue non operative treatment Attending Statement NOTE FOR SURGICAL ATTENDING, DR. ARTURO ORTIZ Tolerating diet patient may go home no need to follow up in my office Ileus resolved I agree with above assessment and plan. The exam, history, and the medical decision-making described in the above note were completed with the assistance of the mid-level provider. I reviewed and agree with the findings presented. I attest that I had a [id number] encounter with the patient on the same day, and personally performed and documented my assessment and findings in the medical record. The following services were provided during this hospital visit: Chart data review, vital sign assessments/reviewing monitor data Review of consultations notes if present. Medication orders/review and/or management Ordering and/or reviewing lab tests Ordering and/or interpreting/reviewing x-rays and/or diagnostic studies Care of the patient and discussion of the patient with the care team Documentation time To help prompt me to consider important information that might be impacting today's encounter and assessment, information from prior notes written by myself or my colleagues may have been "brought forward/copy and pasted" into today's note. Adri Portillo Feb 21, 2017 12:33 Arturo Ortiz MD Feb 21, 2017 17:51
[2017-02-21] MEDS ORDERED: PERC5TAB12 PO (15:16)
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
--- NOTE | 2017-02-21 15:26 | HHI.PR ---
Subjective Remarks The patient was resting comfortably in bed. She wanted to go home. She said she has been having bowel movements and tolerating a diet. Discussed with nursing. Objective Vitals Vital Signs Date Time Temp Pulse Resp B/P (MAP) Pulse Ox O2 Delivery O2 Flow Rate FiO2 02/21/17 08:00 97.9 97 18 142/96 (111) 96 02/21/17 04:50 97.5 86 24 164/98 (120) 97 02/21/17 00:50 97.5 82 22 157/100 (119) 95 02/20/17 20:00 97.8 84 22 154/86 (108) 95 02/20/17 16:00 97.3 90 18 167/107 (127) 94 I/O 02/20/17 02/20/17 02/20/17 02/21/17 02/21/17 02/21/17 07:00 15:00 23:00 07:00 15:00 23:00 Intake Total 2200 ml Balance 2200 ml Intake Oral 0 ml IV Total 2200 ml # Voids 0 3 4 # Bowel Movements 0 1 Result Diagram: 02/21/17 0743 02/21/17 0743 Imaging Last Impressions Abdomen X-Ray 02/21/17 0600 Signed Impressions: Service Date/Time: Tuesday, February 21, 2017 05:41 - CONCLUSION: No acute disease. Richard Wilburn MD Chest X-Ray 02/19/172225 Signed Impressions: Service Date/Time: Sunday, February 19, 2017 22:45 - CONCLUSION: No acute disease. Richard Wilburn MD Abdomen/Pelvis CT 02/19/172225 Signed Impressions: Service Date/Time: Sunday, February 19, 2017 23:56 - CONCLUSION: 1. Suspected small bowel obstruction with a possible transition point at the junction between the mid and distal small bowel the pelvis. There appears to be area of focal narrowed small bowel in this region 2. Hepatic steatosis. Richard Wilburn MD Objective Remarks GENERAL: Middle-aged female in no acute distress. HEENT: PERRLA, EOMI. No scleral icterus or conjunctival pallor. No lid lag or facial droop. CARDIOVASCULAR: Regular rate and rhythm. No obvious murmurs to auscultation. No chest tenderness to palpation. RESPIRATORY: No obvious rhonchi or wheezing. Clear to auscultation. Breath sounds equal bilaterally. GASTROINTESTINAL: Abdomen soft, nontender to palpation, nondistended. BS normal. MUSCULOSKELETAL: Extremities without clubbing, cyanosis, or edema. No obvious deformities. NEUROLOGICAL: Awake, alert and oriented x4. No focal neurologic deficits. Moving both upper and lower extremities spontaneously. Medications and IVs Current Medications Medications (Trade) Dose Ordered Sig/Mayo Route Start Time Stop Time Status Last Admin (D50w (Vial) Inj) 50 ml UNSCH PRN IV PUSH 02/20/17 00:45 (Glucagon Inj) 1 mg UNSCH PRN OTHER 02/20/17 00:45 (NovoLOG SUPPLEMENTAL SCALE) 1 ACHS SLIDING SCALE SQ 02/20/17 08:00 Ciprofloxacin/ Dextrose 200 ml @ 200 mls/hr Q12H IV 02/20/17 12:00 02/21/17 11:59 Metronidazole 100 ml @ 100 mls/hr Q8H IV 02/20/17 09:00 02/21/17 08:38 Sodium Chloride 1,000 ml @ 100 mls/hr Q10H IV 02/20/17 00:44 02/20/17 01:30 (NS Flush) 2 ml UNSCH PRN IV FLUSH 02/20/17 00:45 (NS Flush) 2 ml BID IV FLUSH 02/20/17 09:00 02/21/17 08:38 (Zofran Inj) 4 mg Q6H PRN IVP 02/20/17 00:45 02/21/17 00:23 Acetaminophen 100 ml @ 400 mls/hr Q6H PRN IV 02/20/17 00:45 (Reyna-Colace) 1 tab BID PO 02/20/17 09:00 02/20/17 09:00 (Milk Of Magnesia Liq) 30 ml Q12H PRN PO 02/20/17 00:45 (Senokot) 17.2 mg Q12H PRN PO 02/20/17 00:45 (Dulcolax Supp) 10 mg DAILY PRN RECTAL 02/20/17 00:45 (Lactulose Liq) 30 ml DAILY PRN PO 02/20/17 00:45 (Morphine Inj) 1 mg Q3H PRN IV 02/20/17 01:15 02/21/17 12:21 (Morphine Inj) 1 mg Q3H PRN IV 02/20/17 01:15 02/21/17 08:37 (Vasotec Inj) 2.5 mg Q6H PRN IV PUSH 02/20/17 09:45 02/21/17 11:59 (Ativan Inj) 0.5 mg Q6H PRN IV PUSH 02/20/17 09:45 02/21/17 11:57 A/P Problem List: (1) Sepsis ICD Code: A41.9 - Sepsis, unspecified organism (2) SBO (small bowel obstruction) ICD Code: K56.609 - Unspecified intestinal obstruction, unspecified as to partial versus complete obstruction (3) Intractable nausea and vomiting ICD Code: R11.2 - Nausea with vomiting, unspecified (4) Hypokalemia ICD Code: E87.6 - Hypokalemia (5) DM (diabetes mellitus) ICD Code: E11.9 - Type 2 diabetes mellitus without complications (6) Tobacco abuse ICD Code: Z72.0 - Tobacco use Status: Acute Assessment and Plan SIRS HR 108, RR 26, WBC 27. S/p blood cultures, IV Vanc/Flagyl/Azactam in ER. Resolved. - Follow up cultures. NGTD, - d/c IV Abx. SBO Acute onset of abdominal pain w/ nausea/vomiting, history of multiple abdominal surgeries. CT Abd/Pelvis w/ suspected small bowel obstruction. NGT in ER, NPO , IVF. Consulted Gen Sx for further eval. Resolved with medical management. - low residue diet. - follow up with surgery as an outpt. Intractable NV Secondary to above, now improved after antiemetics. - will continue Zofran as needed. DM - Sliding scale w/ Accu-Cheks. - Hold home Metformin/Insulin for now. Resume upon discharge. Tobacco Abuse Pt counselled. - NicoDerm prn if needed. DVT Prophylaxis: SCD/Teds. Discharge Planning D/c home Clyde Diallo DO Feb 21, 2017 15:26
[2017-02-21] MEDS ORDERED: ZOFR4TAB3 SL (15:27)
== END 2017-02-21 18:42 | disposition home or self-care (01) | DRG 389 ==
LOC: NEPE 22:11 → NEDA 02-20 00:46 → N06B 02-20 05:15
PROVIDERS: ADMIT Hospitalist; ATTEND Hospitalist
DX: K56.609 Unspecified intestinal obstruction, unspecified as to partial versus complete obstruction (principal); R65.10 Systemic inflammatory response syndrome (SIRS) of non-infectious origin without acute organ dysfunction; I10 Essential (primary) hypertension; E11.9 Type 2 diabetes mellitus without complications; F31.9 Bipolar disorder, unspecified; J44.9 Chronic obstructive pulmonary disease, unspecified; G89.29 Other chronic pain; M54.2 Cervicalgia; K21.9 Gastro-esophageal reflux disease without esophagitis; Z96.641 Presence of right artificial hip joint; F17.210 Nicotine dependence, cigarettes, uncomplicated; E87.6 Hypokalemia; Z79.84 Long term (current) use of oral hypoglycemic drugs; E78.5 Hyperlipidemia, unspecified; M06.9 Rheumatoid arthritis, unspecified; B19.20 Unspecified viral hepatitis C without hepatic coma; F41.9 Anxiety disorder, unspecified
CPT/HCPCS: 71010; 74000; 74177; 80048; 80053; 81001; 82550; 82948; 83605; 83690; 83735; 84484; 85025; 85027; 85610; 85730; 86140; 87040; 93005; J0744; J2060; J2270; J2405; J3475; J3480; J7030; Q9967

== ENCOUNTER 2017-04-05 15:26 | Emergency (ER) | payer OTHER, MEDICAID ==
[~2017-04-05] VITALS: Ht 154.9 cm; Wt 84.5 kg
[~2017-04-05 15:26] MED LIST changes: -DOCU100T9 PO; -HYDR-3580 PO; +PERC5TAB12 PO; +ZOFR4TAB3 SL
[2017-04-05 15:27] VITALS: BP 120/80; PULSE 107; RESP 20; TEMP 98.4; O2SAT 94
[2017-04-05] MEDS ORDERED: SERO50TA PO (16:15)
[2017-04-05] MEDS ORDERED: PRED2.5T PO (16:15)
[2017-04-05] MEDS ORDERED: METH2.5T PO (16:15)
[2017-04-05] MEDS ORDERED: FOLI400T PO (16:15)
[2017-04-05] MEDS ORDERED: VENTAER INH (16:16)
[2017-04-05] MEDS ORDERED: ALBU0.08 NEB (16:16)
--- NOTE | 2017-04-05 16:21 | RADRPT ---
EXAM DATE/TIME: 04/05/2017 15:56 [facility] COMPARISON: No previous studies available for comparison. INDICATIONS : Short of breath, Nausea MEDICAL HISTORY : Hypertension. Gastroesophageal reflux disease. Chronic obstructive pulmonary disease. Asthma SURGICAL HISTORY : Right lumpectomy ENCOUNTER: Initial ACUITY: 3 days PAIN SCORE: 0/10 LOCATION: Bilateral chest FINDINGS: PA and lateral views of the chest demonstrate the lungs to be symmetrically aerated without evidence of mass, infiltrate or effusion. The cardiomediastinal contours are unremarkable. Osseous structure s are intact. CONCLUSION: No acute disease. Smooth Miner MD on April 05, 2017 at 16:18 Board Certified Radiologist. This report was verified electronically.
[2017-04-05 16:29] LABS: AUTOMATED NEUTROPHIL # 6.8 TH/MM3 (1.8-7.7); BASOPHIL # 0.1 TH/MM3 (0-0.2); BASOPHIL % 0.6 % (0.0-2.0); EOSINOPHIL # 0.3 TH/MM3 (0-0.4); EOSINOPHIL % 2.3 % (0.0-4.0); HEMATOCRIT 39.5 % (35.0-46.0); LYMPH % 36.2 % (9.0-44.0); LYMPHOCYTE # 4.4 TH/MM3 (1.0-4.8); MEAN CELL VOLUME 87.6 FL (80.0-100.0); MEAN CORPUSCULAR HEMOGLOBIN 28.8 PG (27.0-34.0); MEAN CORPUSCULAR HGB CONC 32.9 % (32.0-36.0); MEAN PLATELET VOLUME 7.8 FL (7.0-11.0); MONO % 4.6 % (0.0-8.0); MONOCYTE # 0.6 TH/MM3 (0-0.9); NEUT % 56.3 % (16.0-70.0); PLATELET COUNT 319 TH/MM3 (150-450); RED BLOOD COUNT 4.51 MIL/MM3 (4.00-5.30); RED CELL DISTRIBUTION WIDTH 17.5 % (11.6-17.2); WHITE BLOOD COUNT 12.1 TH/MM3 (4.0-11.0)
[2017-04-05 17:03] LABS: ALBUMIN 3.3 GM/DL (3.4-5.0); ALKALINE PHOSPHATASE 171 U/L (45-117); ALT (GPT) 28 U/L (10-53); AST (GOT) 12 U/L (15-37); BICARBONATE 27.6 MEQ/L (21.0-32.0); BLOOD UREA NITROGEN 6 MG/DL (7-18); CALCIUM 9.4 MG/DL (8.5-10.1); CHLORIDE 95 MEQ/L (98-107); CREATININE 0.79 MG/DL (0.50-1.00); GLOMERULAR FILTRATION RATE 76 ML/MIN (>89); MAGNESIUM 1.5 MG/DL (1.5-2.5); SODIUM (NA) 131 MEQ/L (136-145); TOTAL BILIRUBIN ADULT 0.4 MG/DL (0.2-1.0)
[2017-04-05 17:17] LABS: GLUCOSE,RANDOM 420 MG/DL (74-106)
[2017-04-05] MEDS: RESP: ALBUTEROL 2.5 MG/IPRATROPIUM 0.5 MG NEB (SCH) INH ×3 (17:30→18:00)
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
[2017-04-05] MEDS ORDERED: INSULIN HUMAN REGULAR 1,000 UNITS/10 ML VIAL SQ ONE (18:00)
[2017-04-05 18:53] VITALS: BP 106/64; PULSE 105; RESP 18; O2SAT 91
[2017-04-05] MEDS ORDERED: IPRA0.02 NEB (19:03)
[2017-04-05] MEDS ORDERED: ZITHTAB PO (19:03)
[2017-04-06] MEDS ORDERED: DOXY100C PO (17:17)
--- NOTE | 2017-04-06 17:17 | PD ---
Physical Exam Narrative Patient requesting change from Z-Kyaw to doxycycline. Data Data Last Documented VS Vital Signs Date Time Temp Pulse Resp B/P (MAP) Pulse Ox O2 Delivery O2 Flow Rate FiO2 04/05/17 19:07 04/05/17 18:53 105 18 91 Room Air 04/05/17 15:27 98.4 Orders Orders Complete Blood Count With Diff (04/05/17 15:36) Comprehensive Metabolic Panel (04/05/17 15:36) Magnesium (Mg) (04/05/17 15:36) Chest, Pa & Lat (04/05/17 15:36) Albuterol-Ipratropium Neb (Duoneb Neb) (04/05/17 17:30) Insulin Human Regular Inj (Novolin R Inj (04/05/17 18:00) Ed Discharge Order (04/05/17 19:00) Labs Laboratory Tests Test 04/05/17 16:00 White Blood Count 12.1 TH/MM3 Red Blood Count 4.51 MIL/MM3 Hemoglobin 13.0 GM/DL Hematocrit 39.5 % Mean Corpuscular Volume 87.6 FL Mean Corpuscular Hemoglobin 28.8 PG Mean Corpuscular Hemoglobin Concent 32.9 % Red Cell Distribution Width 17.5 % Platelet Count 319 TH/MM3 Mean Platelet Volume 7.8 FL Neutrophils (%) (Auto) 56.3 % Lymphocytes (%) (Auto) 36.2 % Monocytes (%) (Auto) 4.6 % Eosinophils (%) (Auto) 2.3 % Basophils (%) (Auto) 0.6 % Neutrophils # (Auto) 6.8 TH/MM3 Lymphocytes # (Auto) 4.4 TH/MM3 Monocytes # (Auto) 0.6 TH/MM3 Eosinophils # (Auto) 0.3 TH/MM3 Basophils # (Auto) 0.1 TH/MM3 CBC Comment DIFF FINAL Differential Comment Blood Urea Nitrogen 6 MG/DL Creatinine 0.79 MG/DL Random Glucose 420 MG/DL Total Protein 7.0 GM/DL Albumin 3.3 GM/DL Calcium Level 9.4 MG/DL Magnesium Level 1.5 MG/DL Alkaline Phosphatase 171 U/L Aspartate Amino Transf (AST/SGOT) 12 U/L Alanine Aminotransferase (ALT/SGPT) 28 U/L Total Bilirubin 0.4 MG/DL Sodium Level 131 MEQ/L Potassium Level 3.5 MEQ/L Chloride Level 95 MEQ/L Carbon Dioxide Level 27.6 MEQ/L Anion Gap 8 MEQ/L Estimat Glomerular Filtration Rate 76 ML/MIN MDM Supervised Visit with CARMENCITA: No Diagnosis Primary Impression: COPD with acute exacerbation Additional Impression: Hyperglycemia Patient Instructions: General Instructions Departure Forms: Tests/Procedures Additional Instruction: Albuterol Atrovent treatment as needed. Accu-Chek blood sugar daily. Follow- up with personal physician. Return if worse. Scripts Doxycycline Hyclate (Doxycycline Hyclate) 100 Mg Cap 100 MG PO BID for Infection, #20 CAP 0 Refills Prov: Gigi Chicas MD 04/06/17 Ipratropium Neb (Ipratropium Neb) 0.5 Mg/2.5 Ml Amp 0.5 MG NEB Q4HR NEB for Breathing Treatment, #60 NEBULE 0 Refills Prov: Gigi Chicas MD 04/05/17 Azithromycin (Zithromax Z-Kyaw) 250 Mg Dspk 250 MG PO DIRECTED for Infection, #1 DSPK 0 Refills 500 MG (2 tabs) day 1, then 1 tab days 2-5. Prov: Gigi Chicas MD 04/05/17 Disposition: 01 DISCHARGE HOME Condition: Stable Gigi Chicas MD Apr 06, 2017 17:17
== END 2017-04-05 19:47 | disposition home or self-care (01) ==
LOC: NEPC 15:26
DX: J44.1 Chronic obstructive pulmonary disease with (acute) exacerbation (principal); E11.65 Type 2 diabetes mellitus with hyperglycemia; E78.00 Pure hypercholesterolemia, unspecified; I10 Essential (primary) hypertension; F31.9 Bipolar disorder, unspecified; F17.200 Nicotine dependence, unspecified, uncomplicated; B19.20 Unspecified viral hepatitis C without hepatic coma; K21.9 Gastro-esophageal reflux disease without esophagitis; Z79.4 Long term (current) use of insulin
CPT/HCPCS: 71046; 80053; 83735; 85025; 94664; 96372; 99285; J1815

== ENCOUNTER 2017-07-04 05:07 | Inpatient (IN) | payer OTHER, MEDICARE ==
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
[~2017-07-04] VITALS: Ht 154.9 cm; Wt 70.4 kg
[~2017-07-04 05:07] MED LIST changes: -ADJUSTABLE COMM1 MIS; -ASPI-183 PO; +FOLI400T PO; +HYDR-3580 PO; +METH2.5T PO; -NOVOLOGP2 SQ; -PERC5TAB12 PO; +PRED2.5T PO; +SERO50TA PO; +VENTAER INH; -WALKER WHEELS/F1 MIS; -ZOFR4TAB3 SL
[2017-07-04] MEDS ORDERED: VANCOMYCIN 1 GM/200 ML INJ 200 ML IV ONE (05:42)
[2017-07-04] MEDS ORDERED: TRANEXAMIC ACID 1 GM PRIOR TO PROCEDURE IV SCH ×2 (05:45)
[2017-07-04] MEDS ORDERED: POVIDONE IODINE 5% (ANTISEPSIS KIT) 4 APPLICATIONS EACH NARE PRN (05:45)
[2017-07-04] MEDS ORDERED: LACTATED RINGER'S 1000 ML IV PRN (05:45)
[2017-07-04] MEDS ORDERED: METOPROLOL TARTRATE 25 MG TAB PO PRN (05:45)
[2017-07-04] MEDS ORDERED: POVIDONE IODINE 7.5% SCRUB 118 ML BOTTLE TOPICAL SCH (05:45)
[2017-07-04] MEDS ORDERED: TRANEXAMIC ACID 1 GM POST-OP IV SCH ×2 (05:45)
[2017-07-04] MEDS ORDERED: VANCOMYCIN 1000 MG/NS 250 ML (for <70 kg) IV SCH ×4 (05:45→06:00)
[2017-07-04] MEDS ORDERED: CHLORHEXIDINE GLUCONATE 2 % 1 PACK (2 CLOTHS) TOPICAL PRN (05:45)
[2017-07-04] MEDS ORDERED: SODIUM CHLORID 0.9% 500 ML IV PRN (05:45)
[2017-07-04] MEDS ORDERED: ALBUAER3 INH (05:54)
[2017-07-04] MEDS ORDERED: GENTAMICIN SULFATE 80 MG/2 ML VIAL ONE (06:10)
[2017-07-04] MEDS ORDERED: INSULIN HUMAN REGULAR 1,000 UNITS/10 ML VIAL ONE (06:18)
[2017-07-04] MEDS ORDERED: INSULIN HUMAN REGULAR 1,000 UNITS/10 ML VIAL SQ PRN (06:45)
[2017-07-04] MEDS ORDERED: DEXT 5%-NACL 0.45% 1000 ML INJ 1,000 ML IV SCH (09:28)
[2017-07-04] MEDS ORDERED: Post-op Orders (for Pharmacy) XX ONE (09:30)
[2017-07-04] MEDS ORDERED: PHARMACY INFORMATION XX ONE (09:30)
[2017-07-04] MEDS ORDERED: NALOXONE HCL 0.4 MG/ML AMP IV PUSH PRN (09:30)
[2017-07-04] MEDS ORDERED: TRANEXAMIC ACID INJ 1,000 MG in SODIUM CHLORIDE 0.9% INJ 100 ML IV SCH (09:30)
[2017-07-04] MEDS ORDERED: ONDANSETRON HCL 4 MG/2 ML VIAL IVP PRN (09:30)
[2017-07-04] MEDS ORDERED: ACETAMINOPHEN 325 MG TAB PO PRN (09:30)
[2017-07-04] MEDS ORDERED: ZOLPIDEM TARTRATE 5 MG TAB PO PRN (09:30)
[2017-07-04] MEDS ORDERED: ACETAMINOPHEN/HYDROcodone 325 MG/5 MG TAB PO PRN (09:30)
[2017-07-04] MEDS ORDERED: DO NOT ADM ANY ANTICOAGULANT DRUGS PRN (09:31)
[2017-07-04] MEDS ORDERED: MIDAZOLAM HCL 2 MG/2 ML VIAL ONE (09:41)
[2017-07-04] MEDS ORDERED: MORPHINE SULFATE 4 MG/ML INJ ONE (09:42)
[2017-07-04] MEDS ORDERED: VANCOMYCIN INJ 1,000 MG in SODIUM CHLOR 0.9% 250 ML INJ 250 ML IV SCH (10:00)
[2017-07-04] MEDS ORDERED: *RESP: ALBUTEROL 2.5 MG/3 ML NEB (PRN) PERIprocedural Use ONLY NEB ONE (10:16)
--- NOTE | 2017-07-04 10:44 | MP ---
cc: Manuel Sifuentes MD DATE OF OPERATION: 07/04/2017 PREOPERATIVE DIAGNOSIS: Severe osteoarthritis of the left hip. POSTOPERATIVE DIAGNOSIS: Severe osteoarthritis of the left hip. PROCEDURE PERFORMED: Left total hip arthroplasty. SURGEON: Manuel Sifuentes MD. ANESTHESIA: General endotracheal. INDICATIONS: This is a 57-year-old white female who was admitted to [facility] in 11/2016 for a history of severe osteoarthritis of her right hip. At that time, she underwent a right total hip arthroplasty, which was completed in an uncomplicated manner and the patient experiencing an uneventful recovery thereafter. In her initial rehabilitation period, she was doing reasonably well, but beginning to experience similar pain of her left hip. She presented to the office in 05/2017 indicating that she was becoming increasingly more symptomatic with pain that had begun to interfere with all ambulatory activities and describing her symptoms being similar in nature to what she had noted in the past involving her right hip. She was being treated with methotrexate for a history of rheumatoid arthritis. At the time of her office evaluation, her x-ray studies did reveal degenerative changes with hypertrophic reaction along the superior margin of the acetabulum. Findings and treatment options were reviewed. The patient was treated with a steroid Dosepak and followed on an outpatient basis. She remained symptomatic with ongoing pain and subsequently underwent an MRI scan, the results of which identified severe osteoarthritis of her left hip with subchondral cystic changes and marrow edema associated with a joint effusion and severe synovitis. There was bursitis involving the greater trochanter. The patient returned to the office in further disposition indicating significant pain and incapacitation with regard to all ambulatory activities. Given her ongoing symptoms, being unresponsive to continued management and noting her favorable response from previous surgery of her right hip, the patient expressed her desire to proceed with similar treatment involving her left hip at this time. In compliance with her wishes, she was scheduled for admission in order that the above be accomplished. FORMAT: Following the induction of satisfactory general anesthesia by endotracheal intubation as completed per the department of anesthesia, the patient was positioned upon the operating table in a right lateral decubitus fashion. The left hip and lower extremity proper were isolated with a U-drape, thereafter being prepped with Betadine solution and draped into a sterile field in the routine manner. Prior to initiation of the actual procedure, the standard time-out protocol was completed. All parameters were appropriately addressed and confirmed by operating room personnel. A sharp skin incision was initiated over the posterolateral aspect of the hip and developed through underlying subcutaneous tissue with hemostasis maintained by electrocautery. By deepening dissection, the underlying gluteus fibers were exposed and sharply incised to the limits of the incision. Progressive dissection facilitated exposure of the short external rotator structures. The piriformis tendon was utilized as an anatomical landmark and division of these structures was completed in a superior to inferior orientation and reflected medially exposing the posterior capsule. The sciatic nerve was protected. An L-shaped capsulotomy of the hip joint was completed through which a posterior dislocation of the femoral head was accomplished. Examination revealed very significant degenerative changes with complete erosion of articular cartilage and subchondral bone exposed, hypertrophic reaction along the margins of the femoral head. The femoral template was positioned for alignment orientation. The neck was scored and thereafter divided with power saw, the amputated segment being passed to the back table as surgical specimen. Attention was initially directed to the proximal femur. Cancellous bone was harvested. The tapered reamer was inserted for alignment orientation. Rasping and broaching was accomplished with a 7 mm sizing with the 7 mm stem determined to be a satisfactory fit. The calcar yanet was utilized at this stage. With the trial component being removed, attention was redirected to the acetabulum. The labrum and reactive soft tissue were sharply excised. Progressive reaming was accomplished from 44-47 mm. The 48 trial shell was positioned and determined to be satisfactory. With all trial components being removed, the wound was copiously irrigated with pulsating antibiotic solution, hemostasis again being maintained by electrocautery. Harvested cancellous bone was digitally impacted into the depths of the acetabulum and thereafter a 48 mm RingLoc acetabular shell was firmly seated in approximately 45 degrees inclination to the horizontal and slight anteversion. A single 25 mm 6.5 cancellous screw was inserted superiorly to augment fixation. The permanent high wall acetabular liner was attached to the acetabular shell. Femoral canal was irrigated and dried and thereafter, the trial femoral broach was repositioned and a trial reduction followed utilizing a 32 mm modular head with -6 mm neck length adaptor. The hip readily reduced and was carried through a passive range of motion with stability demonstrated at 90 degrees flexion and 45 degrees internal rotation. Open dislocation completed. Trial femoral components being removed, the canal was thoroughly irrigated and dried and thereafter, the size 7 Echo Bi-Metric standard femoral stem was firmly seated to which, a 32 mm ceramic head with -6 mm neck length adapter attached, open reduction completed and repeat range of motion again noting stability as previously described. It should be mentioned that as the femoral component was firmly seated, a crack in the calcar occurred which was stabilized with a 2 mm cable wire. The wound was thereafter copiously irrigated with pulsating antibiotic solution, hemostasis maintained by electrocautery. The posterior capsule was repaired with 0 Vicryl suture. Hemovac drains were inserted through superior stab wounds. The remaining portion of the wound was closed in layers in the routine manner, skin margins being reapproximated with a running subcuticular 3-0 Vicryl suture over which Steri-Strips were applied. Xeroform gauze and a bulky dry sterile dressing were placed. The patient was repositioned into a supine orientation where an abduction splint was attached. Anesthesia was discontinued and she was thereafter transferred to the hospital stretcher, and returned to the recovery room in satisfactory condition having tolerated her operative procedure well. Estimated blood loss was approximately 150 mL as determined per anesthesia. All implants were of the [employer] ceramics artist. MD SHARRI Wray/DL , 09:23 AM , 10:43 AM
[2017-07-04] MEDS: SODIUM CHLOR 0.45% 1000 ML INJ 1,000 ML IV SCH ×2 (10:45→19:47)
--- NOTE | 2017-07-04 10:55 | RADRPT ---
EXAM DATE/TIME: 07/04/2017 10:45 [place] COMPARISON: No previous studies available for comparison. INDICATIONS : Post op left hip surgery. MEDICAL HISTORY : Hypertension. Chronic obstructive pulmonary disease. Gastroesophageal reflux disease.Asthma SURGICAL HISTORY : Right lumpectomy ENCOUNTER: Initial ACUITY: 1 day PAIN SCORE: 0/10 LOCATION: Left Hip FINDINGS: Frontal view of left hip with a non-cemented total hip arthroplasty. Cerclage wire surrounds the int ratrochanteric region. Superior screw from the acetabulum component. [address]. CONCLUSION: Expected postsurgical findings status post total hip arthroplasty. Angel Johnson MD on July 04, 2017 at 10:53 Board Certified Radiologist. This report was verified electronically.
[2017-07-04 11:25] VITALS: BP 124/58; PULSE 99; RESP 18; TEMP 98.5; O2SAT 96
[2017-07-04] MEDS: MORPHINE SULFATE 30 MG/30 ML PCA IV SCH (11:50)
[2017-07-04] MEDS ORDERED: ROCURONIUM INJ 50 MG/5 ML SYRINGE IV PUSH ONE (12:00)
[2017-07-04] MEDS ORDERED: LIDOCAINE HCL 1% PF 5 ML SYRINGE OTHER ONE (12:00)
[2017-07-04] MEDS ORDERED: INSULIN HUMAN REGULAR 1,000 UNITS/10 ML VIAL SQ ONE (12:00)
[2017-07-04] MEDS ORDERED: SODIUM CHLOR 0.45% 1000 ML INJ 1,000 ML IV SCH (12:00)
[2017-07-04] MEDS ORDERED: PROPOFOL 200 MG/20 ML AMP IV ONE (12:00)
[2017-07-04] MEDS ORDERED: PHENYLEPH/NS 1000 MCG/10 ML SYR IV ONE (12:00)
[2017-07-04] MEDS: PCA - TOTAL MG MORPHINE DELIVERED PER SHIFT SCH ×2 (14:00→21:21)
--- NOTE | 2017-07-04 14:57 | PD.CONS ---
HPI Service [facility] Hospitalists Consult Requested By Primary Care Physician No Primary Care Physician Diagnoses: History of Present Illness Mrs. Arceo is a 57-year-old female. She is admitted secondary to an elective left hip surgery. She is seen postop and doing well. Pain is present but pain medication treatments are in place. No nausea. Appetite is not yet fully returned. At baseline she is a diabetic and does have a history of smoking. She requests a NicoDerm this is discussed. Review of Systems Constitutional: DENIES: Fatigue, Fever, Chills Eyes: DENIES: Diplopia, Eye inflammation, Eye pain Ears, nose, mouth, throat: DENIES: Hearing loss, Vertigo, Nasal discharge Respiratory: DENIES: Cough, Wheezing, Shortness of breath Cardiovascular: DENIES: Chest pain, Palpitations, Syncope Gastrointestinal: DENIES: Abdominal pain, Black stools, Bloody stools Musculoskeletal: COMPLAINS OF: Joint pain, Muscle aches, Stiffness, Joint Swelling Integumentary: DENIES: Abnormal pigmentation, Pruritus, Rash, Nail changes Hematologic/lymphatic: DENIES: Bruising, Lymphadenopathy Immunologic/allergic: DENIES: Eczema, Urticaria Neurologic: DENIES: Abnormal gait, Headache, Paresthesias Psychiatric: DENIES: Anxiety, Confusion, Hallucinations Past Family Social History Allergies: Coded Allergies: erythromycin base (Verified Allergy, Severe, Swelling, 07/04/17) penicillin G (Unverified Allergy, Severe, THROAT SWELLS CLOSED, 07/04/17) Past Medical History Anxiety Depression Bipolar Disorder Hepatitis C HTN Hyperlipidemia COPD GERD Tobacco Abuse Past Surgical History Hysterectomy Right Hip Replacement Cholecystectomy Breast Lumpectomy Reported Medications Reported Meds & Active Scripts Active Reported Proair Hfa 8.5 GM Inh (Albuterol Sulfate) 90 Mcg/Act Aer 2 Puff INH Q4-6H PRN 108 mcg/actuation Hydrocodone-Acetaminophen 7.5 Mg-325 Mg Tab 1 Tab PO TID PRN Ventolin Hfa 18 GM Inh (Albuterol Sulfate) 90 Mcg/Act Aer 2 Puff INH Q4-6H PRN Seroquel (Quetiapine Fumarate) 50 Mg Tab 100 Mg PO HS Folic Acid 0.4 Mg Tab 0.4 Mg PO DIRECTED PT TAKES EVERY DAY EXCEPT MONDAY Prednisone 2.5 Mg Tab 2.5 PO DAILY Methotrexate 2.5 Mg Tab 7 Mg PO Q7D MONDAY Lantus Inj (Insulin Glargine) 1,000 Unit/10 Ml Vial 70 Units SQ AC BREAKFAST Omeprazole 40 Mg Cap 40 Mg PO DAILY Xanax (Alprazolam) 2 Mg Tab 2 Mg PO BID PRN Crestor (Rosuvastatin Calcium) 40 Mg Tab 40 Mg PO HS Lisinopril 10 Mg Tab 10 Mg PO DAILY Metformin (Metformin HCl) 1,000 Mg Tab 1,000 Mg PO BIDPC With meals Victoza Inj (Liraglutide Inj) 18 Mg/3 Ml Pen 1.2 Mg SQ HS Active Ordered Medications Administered Medications Medications (Trade) Dose Ordered Sig/Mayo Route PRN Reason Start Time Stop Time Status Last Admin Dose Admin Tranexamic Acid 1000 mg/Sodium Chloride 110 ml @ 220 mls/hr ONCE IV 07/04/17 05:45 07/04/17 15:00 07/04/17 10:20 Povidone Iodine (Betadine 5% Antisepsis Kit) 1 applic BOBTAILER PRN EACH NARE SEE LABEL COMMENTS 07/04/17 05:45 07/07/17 05:44 07/04/17 06:15 Chlorhexidine Gluconate (Chlorhexidine 2% Cloth) 3 pack BOBTAILER PRN TOPICAL SEE LABEL COMMENTS 07/04/17 05:45 07/07/17 05:44 07/04/17 05:30 Vancomycin/Sodium Chloride 200 ml @ 200 mls/hr BOBTAILER IV 07/04/17 06:00 07/04/17 06:36 Insulin Human Regular (NovoLIN R INJ) See Protocol Table ... BOBTAILER PRN SQ SEE PROTOCOL TABLE 07/04/17 06:45 07/07/17 06:44 07/04/17 06:20 Morphine Sulfate (Morphine 1 Mg/ ml TRADE SHOW SPECIALIST) 30 mg UNSCH IV 07/04/17 09:30 07/04/17 11:50 Sodium Chloride 1,000 ml @ 125 mls/hr Q8H IV 07/04/17 12:15 07/04/17 10:45 Family History None Social History No alcohol abuse Illicit drug abuse Patient has a history of smoking Physical Exam Vital Signs Vital Signs Date Time Temp Pulse Resp B/P (MAP) Pulse Ox O2 Delivery O2 Flow Rate FiO2 07/04/17 11:55 15 07/04/17 11:50 15 07/04/17 11:25 98.5 99 18 124/58 (80) 96 07/04/17 10:45 97.6 98 15 113/62 (79) 95 Nasal Cannula 3 07/04/17 10:30 97 15 115/63 (80) 94 Nasal Cannula 3 07/04/17 10:15 99 15 111/60 (77) 93 Nasal Cannula 3 07/04/17 10:00 100 15 112/59 (76) 92 Nasal Cannula 3 07/04/17 09:45 101 15 110/58 (75) 91 Nasal Cannula 3 07/04/17 09:30 99 14 105/61 (76) 97 Simple Mask 8 07/04/17 09:25 97.1 98 14 91/52 (65) 95 Simple Mask 8 07/04/17 06:20 98.1 108 18 123/72 (89) 94 Physical Exam GENERAL: NAD, A&Ox3 HEAD: Normocephalic. NECK: Supple, trachea midline. No lymphadenopathy. EYES: No scleral icterus. No injection or drainage. CARDIOVASCULAR: Regular rate and rhythm without murmurs, gallops, or rubs. RESPIRATORY: Breath sounds equal bilaterally. No accessory muscle use. GASTROINTESTINAL: Abdomen soft, non-tender, nondistended. MUSCULOSKELETAL: No cyanosis, or edema. Left hip bandage. SKIN: Warm and dry. NEURO: No focal neurological deficitis. Imaging Last Impressions Hip X-Ray 07/04/17927 Signed Impressions: Service Date/Time: Tuesday, July 04, 2017 10:45 - CONCLUSION: Expected postsurgical findings status post total hip arthroplasty. Angel Johnson MD Assessment and Plan Assessment and Plan 57-year-old female admitted secondary to elective left hip surgery Osteoarthritis Status post left hip replacement surgery Continue pain treatments as needed Continue physical therapy Orthopedic surgeons following H&H in a.m. Anxiety Depression Bipolar Disorder Continue baseline treatments No exacerbations Diabetes mellitus type 2 Follow blood sugars Insulin sliding scale Diabetic diet Hypertension Continue baseline treatment Follow blood pressures Adjust treatments as needed Hyperlipidemia Continue present treatment Follow as an outpatient Hepatitis C Standard precautions No change to baseline treatment Follow as an outpatient COPD Tobacco Abuse Nicotine dependence NicoDerm started Patient counseled to quit smoking No exacerbation of COPD DVT prophylaxis Treatment via discretion of surgeon Carl Hickman MD July 04, 2017 14:57
[2017-07-04 15:47] VITALS: BP 140/82; PULSE 104; RESP 19; TEMP 98.4; O2SAT 96
[2017-07-04 15:49] VITALS: O2SAT 93
[2017-07-04] MEDS ORDERED: DEXTROSE 50% IN WATER 50 ML VIAL(D50) IV PUSH PRN (19:00)
[2017-07-04] MEDS ORDERED: GLUCAGON 1 MG/ML VIAL OTHER PRN (19:00)
[2017-07-04] MEDS ORDERED: NICOTINE 14 MG/24 HR PATCH T-DERMAL ONE (19:00)
[2017-07-04 19:26] VITALS: BP 137/69; PULSE 107; RESP 18; TEMP 98.8; O2SAT 94
[2017-07-04] MEDS: VANCOMYCIN INJ 1,000 MG in SODIUM CHLOR 0.9% 250 ML INJ 250 ML IV SCH (21:04)
[2017-07-04] MEDS: INSULIN ASPART SUPPLEMENTAL SCALE SQ SCH (21:20)
[2017-07-05 00:16] VITALS: BP 160/82; PULSE 123; RESP 18; TEMP 98.8; O2SAT 96
[2017-07-05] MEDS: MORPHINE SULFATE 30 MG/30 ML PCA IV SCH (01:54)
[2017-07-05 03:51] VITALS: BP 150/79; PULSE 119; RESP 19; TEMP 98.9; O2SAT 96
[2017-07-05] MEDS: SODIUM CHLOR 0.45% 1000 ML INJ 1,000 ML IV SCH ×4 (04:15→22:50)
[2017-07-05] MEDS: PCA - TOTAL MG MORPHINE DELIVERED PER SHIFT SCH ×4 (05:53→22:50)
[2017-07-05 07:05] LABS: HEMATOCRIT 32.4 % (35.0-46.0); HEMOGLOBIN 10.5 GM/DL (11.6-15.3)
[2017-07-05] MEDS ORDERED: HYDR-3580 PO (07:39)
[2017-07-05] MEDS ORDERED: ASPI-183 PO (07:39)
[2017-07-05] MEDS ORDERED: NICO1DIS8 T-DERMAL (07:39)
--- NOTE | 2017-07-05 07:42 | HHI.FF ---
Face to Face Verification Diagnosis: (1) Degenerative joint disease (DJD) of hip Physical Therapy Gait training Hip: Total hip, Protocol: Left, Abduction pillow while in bed Left LE Weight Bearing: WB as tolerated Left LE Range of Motion: Active ROM Nursing Dressing Changes: Daily dressing change I have seen patient Bridgett Arceo on 07/05/17. My clinical findings support the need for the requested home health care services because: Limited ability to care for self High risk of falls I certify that my clinical findings support that this patient is homebound because: Post-op weakness Unsteady gait/balance Unsafe to leave home unassisted Manuel Sifuentes MD July 05, 2017 07:42
[2017-07-05] MEDS ORDERED: WALKER WHEELS/F1 MIS (07:44)
[2017-07-05 08:00] VITALS: BP 113/72; PULSE 110; RESP 18; TEMP 98.5; O2SAT 95
[2017-07-05] MEDS: INSULIN ASPART SUPPLEMENTAL SCALE SQ SCH ×4 (08:00→21:00)
[2017-07-05] MEDS: REMOVE OLD PATCH T-DERMAL SCH (09:00)
[2017-07-05] MEDS ORDERED: NICOTINE 7 MG/24 HR PATCH T-DERMAL SCH (09:00)
[2017-07-05] MEDS ORDERED: REMOVE OLD PATCH T-DERMAL SCH (09:00)
[2017-07-05] MEDS: RIVAROXABAN 10 MG TAB PO SCH (09:12)
[2017-07-05] MEDS: NICOTINE 14 MG/24 HR PATCH T-DERMAL SCH (09:14)
[2017-07-05] MEDS: VANCOMYCIN INJ 1,000 MG in SODIUM CHLOR 0.9% 250 ML INJ 250 ML IV SCH (09:15)
[2017-07-05] MEDS: ACETAMINOPHEN/HYDROcodone 325 MG/5 MG TAB PO PRN ×3 (10:42→21:09)
--- NOTE | 2017-07-05 11:25 | HHI.PR ---
Subjective Remarks Patient sitting in bed, just finished physical therapy. She states she did not get her Xanax, folic acid or prednisone today and she is very anxious. She states her pain is controlled with the norco. Denies any chest pain. Objective Vitals Vital Signs Date Time Temp Pulse Resp B/P (MAP) Pulse Ox O2 Delivery O2 Flow Rate FiO2 07/05/17 08:00 98.5 110 18 113/72 (86) 95 07/05/17 05:53 16 07/05/17 03:51 98.9 119 19 150/79 (102) 96 07/05/17 01:59 18 07/05/17 01:54 18 07/05/17 00:16 98.8 123 18 160/82 (108) 96 07/04/17 21:21 18 07/04/17 19:26 98.8 107 18 137/69 (91) 94 07/04/17 15:49 93 Nasal Cannula 2.00 07/04/17 15:47 98.4 104 19 140/82 (101) 96 07/04/17 14:00 19 07/04/17 11:50 15 07/04/17 11:25 98.5 99 18 124/58 (80) 96 I/O 07/04/17 07/04/17 07/04/17 07/05/17 07/05/17 07/05/17 07:00 15:00 23:00 07:00 15:00 23:00 Intake Total 260 ml 360 ml Output Total 150 ml 60 ml 30 ml Balance 110 ml -60 ml 330 ml Intake Oral 360 ml IV Total 110 ml Other 150 ml Output Drainage Total 60 ml 30 ml Estimated Blood Loss 150 ml # Voids 1 Result Diagram: 07/05/17 0450 Objective Remarks General: In no distress, sitting in bed eating breakfast CARDIOVASCULAR: Regular rate and rhythm without murmurs, gallops, or rubs. RESPIRATORY: Breath sounds equal bilaterally. No accessory muscle use. expiratory wheezes noted MUSCULOSKELETAL: No cyanosis, or edema. Left hip bandage. / muscle strength A/P Assessment and Plan 57-year-old female admitted secondary to elective left hip surgery Osteoarthritis -Status post left hip replacement surgery, ortho following -Continue pain treatments as needed -Continue physical therapy -07/05 Hold home steroid until cleared by surgery Anxiety Depression Bipolar Disorder -Continue baseline treatments -07/05 Xanax PRN per home medications Diabetes mellitus type 2 -Accu checks with SSI -Diabetic diet Hypertension, stable -Continue baseline treatment -Follow blood pressures -Adjust treatments as needed Hyperlipidemia -Continue present treatment -Follow as an outpatient Hepatitis C -Standard precautions -No change to baseline treatment -Follow as an outpatient COPD Tobacco Abuse Nicotine dependence -NicoDerm started -Patient counseled to quit smoking -No exacerbation of COPD -07/05 patient with mild wheezing, DuoNeb ordered DVT prophylaxis Treatment via discretion of surgeon Discharge Planning per Winsome Moctezuma July 05, 2017 11:25
[2017-07-05 12:00] VITALS: BP 129/76; PULSE 110; RESP 18; TEMP 99.8; O2SAT 94
[2017-07-05] MEDS: FOLIC ACID 1 MG TAB PO SCH (12:34)
[2017-07-05] MEDS: ALPRAZolam 1 MG TAB PO PRN (12:34)
[2017-07-05 16:00] VITALS: BP 119/67; PULSE 110; RESP 18; TEMP 100.7; O2SAT 92
[2017-07-05] MEDS: RESP: ALBUTEROL 2.5 MG/IPRATROPIUM 0.5 MG NEB (SCH) NEB ×2 (16:57→20:30)
[2017-07-05 19:47] VITALS: BP 102/60; PULSE 110; RESP 18; TEMP 99.1; O2SAT 94
[2017-07-05] MEDS: DOCUSATE SODIUM 100 MG CAP PO PRN (21:09)
[2017-07-06] VITALS (10 sets, daily range): BP systolic 97–135; BP diastolic 58–84; PULSE 101–107; RESP 16–18; TEMP 98–98.9; O2SAT 90–98
[2017-07-06] MEDS: ALPRAZolam 1 MG TAB PO PRN ×2 (00:34→12:43)
[2017-07-06] MEDS: SODIUM CHLOR 0.45% 1000 ML INJ 1,000 ML IV SCH (01:40)
[2017-07-06] MEDS ORDERED: RESP: ALBUTEROL 2.5 MG/IPRATROPIUM 0.5 MG NEB (PRN) NEB (03:30)
[2017-07-06] MEDS: RESP: ALBUTEROL 2.5 MG/IPRATROPIUM 0.5 MG NEB (SCH) NEB ×4 (03:48→20:07)
[2017-07-06] MEDS: ACETAMINOPHEN/HYDROcodone 325 MG/5 MG TAB PO PRN ×4 (05:48→21:32)
[2017-07-06] MEDS: MAGNESIUM HYDROXIDE SUSP 30 ML CUP PO PRN (05:48)
[2017-07-06] MEDS: INSULIN ASPART SUPPLEMENTAL SCALE SQ SCH ×4 (08:00→21:33)
[2017-07-06] MEDS: RIVAROXABAN 10 MG TAB PO SCH (08:59)
[2017-07-06] MEDS: FOLIC ACID 1 MG TAB PO SCH (08:59)
[2017-07-06] MEDS: DOCUSATE SODIUM 100 MG CAP PO PRN (08:59)
[2017-07-06] MEDS: NICOTINE 14 MG/24 HR PATCH T-DERMAL SCH (09:00)
[2017-07-06] MEDS: REMOVE OLD PATCH T-DERMAL SCH (09:00)
--- NOTE | 2017-07-06 12:13 | HHI.PR ---
Subjective Remarks Follow up hip replacement. Patient laying in bed in NAD, states her pain is controlled and no issues. Denies any chest pain or sob. Objective Vitals Vital Signs Date Time Temp Pulse Resp B/P (MAP) Pulse Ox O2 Delivery O2 Flow Rate FiO2 07/06/17 10:02 98 Nasal Cannula 3.00 07/06/17 08:00 98.0 103 18 121/76 (91) 92 07/06/17 07:37 Nasal Cannula 3.00 07/06/17 03:48 92 Nasal Cannula 5.00 07/06/17 00:01 98.7 107 16 132/71 (91) 93 07/05/17 21:00 94 Nasal Cannula 3.00 07/05/17 19:47 99.1 110 18 102/60 (74) 94 07/05/17 16:00 100.7 110 18 119/67 (84) 92 07/05/17 14:00 18 07/05/17 13:14 21 I/O 07/05/17 07/05/17 07/05/17 07/06/17 07/06/17 07/06/17 07:00 15:00 23:00 07:00 15:00 23:00 Intake Total 360 ml 250 ml 1720 ml 1400 ml Output Total 30 ml 20 ml 30 ml Balance 330 ml 250 ml 1700 ml 1370 ml Intake Oral 360 ml 720 ml IV Total 250 ml 1000 ml 1400 ml Output Drainage Total 30 ml 20 ml 30 ml # Voids 4 # Bowel Movements 0 Result Diagram: 07/05/17 0450 Objective Remarks General: In no distress, laying in bed CARDIOVASCULAR: Regular rate and rhythm without murmurs, gallops, or rubs. RESPIRATORY: Breath sounds clear, equal bilaterally. No accessory muscle use. MUSCULOSKELETAL: No cyanosis, or edema. Left hip bandage. 4/5 muscle strength Urinary Catheter: No Vascular Central Line Catheter: No A/P Assessment and Plan 57-year-old female admitted secondary to elective left hip surgery Osteoarthritis -Status post left hip replacement surgery, ortho following -Continue pain treatments as needed -Continue physical therapy -/2 Hold home steroid until cleared by surgery Anxiety Depression Bipolar Disorder -Continue baseline treatments -5/2 Xanax PRN per home medications Diabetes mellitus type 2 -Accu checks with SSI -Diabetic diet Hypertension, stable -Continue baseline treatment -Follow blood pressures -Adjust treatments as needed Hyperlipidemia -Continue present treatment -Follow as an outpatient Hepatitis C -Standard precautions -No change to baseline treatment -Follow as an outpatient COPD Tobacco Abuse Nicotine dependence -NicoDerm started -Patient counseled to quit smoking -No exacerbation of COPD -5/2 patient with mild wheezing, DuoNeb ordered DVT prophylaxis Treatment via discretion of surgeon Discharge Planning per Winsome Moctezuma July 06, 2017 12:13
[2017-07-06 13:06] LABS: AUTOMATED NEUTROPHIL # 6.7 TH/MM3 (1.8-7.7); BASOPHIL % 0.3 % (0.0-2.0); EOSINOPHIL # 0.1 TH/MM3 (0-0.4); EOSINOPHIL % 1.6 % (0.0-4.0); HEMATOCRIT 30.1 % (35.0-46.0); HEMOGLOBIN 9.8 GM/DL (11.6-15.3); LYMPH % 18.8 % (9.0-44.0); LYMPHOCYTE # 1.7 TH/MM3 (1.0-4.8); MEAN CELL VOLUME 88.3 FL (80.0-100.0); MEAN CORPUSCULAR HEMOGLOBIN 28.7 PG (27.0-34.0); MEAN CORPUSCULAR HGB CONC 32.5 % (32.0-36.0); MEAN PLATELET VOLUME 7.6 FL (7.0-11.0); MONO % 6.6 % (0.0-8.0); MONOCYTE # 0.6 TH/MM3 (0-0.9); NEUT % 72.7 % (16.0-70.0); PLATELET COUNT 301 TH/MM3 (150-450); RED BLOOD COUNT 3.41 MIL/MM3 (4.00-5.30); RED CELL DISTRIBUTION WIDTH 20.7 % (11.6-17.2); WHITE BLOOD COUNT 9.3 TH/MM3 (4.0-11.0)
[2017-07-06 13:30] LABS: BICARBONATE 33.6 MEQ/L (21.0-32.0); CALCIUM 8.4 MG/DL (8.5-10.1); CREATININE 0.63 MG/DL (0.50-1.00)
[2017-07-06] MEDS: PCA - TOTAL MG MORPHINE DELIVERED PER SHIFT SCH ×2 (14:00→22:00)
[2017-07-06] MEDS ORDERED: POTASSIUM CHLORIDE 25 MEQ EFFERVESCENT TAB PO ONE (15:30)
[2017-07-07] MEDS: DOCUSATE SODIUM 100 MG CAP PO PRN (03:19)
[2017-07-07] MEDS: MAGNESIUM HYDROXIDE SUSP 30 ML CUP PO PRN ×2 (03:19→21:18)
[2017-07-07] MEDS: ALPRAZolam 1 MG TAB PO PRN ×2 (03:19→19:01)
[2017-07-07] MEDS: ACETAMINOPHEN/HYDROcodone 325 MG/5 MG TAB PO PRN ×3 (03:20→19:02)
[2017-07-07] MEDS: RESP: ALBUTEROL 2.5 MG/IPRATROPIUM 0.5 MG NEB (SCH) NEB ×4 (03:56→19:40)
[2017-07-07 04:00] VITALS: BP 131/78; PULSE 110; RESP 20; TEMP 98.5; O2SAT 92
[2017-07-07] MEDS: SODIUM CHLOR 0.45% 1000 ML INJ 1,000 ML IV SCH ×3 (04:15→20:15)
[2017-07-07] MEDS: PCA - TOTAL MG MORPHINE DELIVERED PER SHIFT SCH ×3 (04:20→21:19)
[2017-07-07 06:52] LABS: AUTOMATED NEUTROPHIL # 5.8 TH/MM3 (1.8-7.7); BASOPHIL # 0.1 TH/MM3 (0-0.2); BASOPHIL % 0.8 % (0.0-2.0); EOSINOPHIL # 0.2 TH/MM3 (0-0.4); HEMATOCRIT 28.7 % (35.0-46.0); HEMOGLOBIN 9.4 GM/DL (11.6-15.3); LYMPH % 18.7 % (9.0-44.0); LYMPHOCYTE # 1.5 TH/MM3 (1.0-4.8); MEAN CELL VOLUME 89.5 FL (80.0-100.0); MEAN CORPUSCULAR HEMOGLOBIN 29.3 PG (27.0-34.0); MEAN CORPUSCULAR HGB CONC 32.8 % (32.0-36.0); MEAN PLATELET VOLUME 7.8 FL (7.0-11.0); MONO % 5.6 % (0.0-8.0); MONOCYTE # 0.4 TH/MM3 (0-0.9); NEUT % 72.9 % (16.0-70.0); PLATELET COUNT 289 TH/MM3 (150-450); RED BLOOD COUNT 3.21 MIL/MM3 (4.00-5.30); RED CELL DISTRIBUTION WIDTH 20.2 % (11.6-17.2)
[2017-07-07 07:17] LABS: BICARBONATE 30.9 MEQ/L (21.0-32.0); CALCIUM 8.4 MG/DL (8.5-10.1); CREATININE 0.45 MG/DL (0.50-1.00)
--- NOTE | 2017-07-07 07:53 | MD ---
cc: Manuel Sifuentes MD DATE OF DISCHARGE: 07/07/2017 ADMITTING DIAGNOSIS: Severe osteoarthritis of the left hip. DISCHARGE DIAGNOSES: Severe osteoarthritis of the left hip. HISTORY OF PRESENT ILLNESS: This is a 57-year-old white female who was admitted to [facility] in November of this past year for history of severe osteoarthritis of her right hip. At that time, she underwent a right total hip arthroplasty which was completed in an uncomplicated manner and the patient noting an uneventful recovery thereafter. During her initial rehabilitation period, she began to experience similar pain involving her left hip that became more pronounced with the passage of time. She presented to the office in May of this year indicating that she was becoming increasingly more symptomatic with pain that had begun to interfere with all ambulatory activities with her symptoms being similar in nature to what she had previously noted involving her right hip. She was being treated with methotrexate for a history of rheumatoid arthritis and at the time of her office evaluation, her x-ray studies did reveal degenerative changes with hypertrophic reaction along the superior margin of the acetabulum. Findings and treatment options were reviewed. The patient was treated with a steroid Dosepak while being followed on an outpatient basis. Unfortunately, her symptoms became more pronounced for which she did undergo an MRI scan, the results of which identified severe osteoarthritis of her left hip with subchondral cystic changes and marrow edema associated with an effusion and severe synovitis and associated bursitis involving the greater trochanter. The patient returned to the office in followup disposition indicating significant incapacitation with regards to all ambulatory activities for which she expressed her desire to proceed with a more definitive course of treatment, especially as related to operative intervention. Given the favorable response that she had noted from previous surgery involving her right hip and her desire to proceed accordingly, she was scheduled for a left total hip arthroplasty at this time. Her physical examination at the time of admission did reveal tenderness generalized about the lateral aspect of the left hip. There was restricted and guarded mobility of the hip joint in all ranges assessed with pain at the extremes of motion. No sensation of crepitation. Straight leg raising negative at 60 degrees. Ovidio's sign positive. Distal sensory grossly intact. Pronounced antalgic gait. HOSPITAL COURSE: Prior to admission to the hospital, the patient had undergone medical evaluation and clearance for surgery as completed by her primary care physician. She was taken to the operating room on 07/04/2017 and on that date underwent a left total hip arthroplasty completed in an uncomplicated manner. The patient was noted to have tolerated her operative procedure well and her postoperative course stable thereafter. Hemoglobin and hematocrit assessment postoperatively was 10.5 and 32.4 respectively. The patient was progressively mobilized under the guidance of physical therapy being permitted weightbearing to tolerance about the left lower extremity. Followup examination of her surgical wound noted to be intact, healing favorably with no evidence of infection. Medical followup per the hospitalist service. DVT prophylaxis initiated. Microfabrication Engineer Manager consulted to assist with discharge planning. The patient had indicated her desire to be discharged to a rehabilitation facility for continued mobilization upon discharge from the hospital. Plans were finalized in this regard and pending medical clearance, she was scheduled for transfer on the third postoperative day, at which time she was making favorable progress with regards to her initial rehabilitation program. She was scheduled to be seen in office followup in approximately 4 weeks. CONDITION AT THE TIME OF DISCHARGE: Stable. PROGNOSIS: Favorable. DISCHARGE MEDICATIONS: Included hydrocodone 7.5/325 #50, aspirin 325 mg 1 tab twice daily for 4 weeks #60, and a nicotine patch 7 mg per 24 hours #14. Manuel Sifuentes MD NBS/DL , 07:35 AM , 07:52 AM
[2017-07-07 08:00] VITALS: BP 137/75; PULSE 107; RESP 21; TEMP 97.5; O2SAT 93
[2017-07-07] MEDS: REMOVE OLD PATCH T-DERMAL SCH (09:00)
[2017-07-07 09:04] VITALS: O2SAT 91
[2017-07-07] MEDS ORDERED: LACTULOSE SYRUP 20 GM/30 ML CUP PO ONE (09:15)
[2017-07-07] MEDS: RIVAROXABAN 10 MG TAB PO SCH (09:20)
[2017-07-07] MEDS: INSULIN ASPART SUPPLEMENTAL SCALE SQ SCH ×4 (09:20→21:19)
[2017-07-07] MEDS: NICOTINE 14 MG/24 HR PATCH T-DERMAL SCH (09:21)
[2017-07-07] MEDS: FOLIC ACID 1 MG TAB PO SCH (09:21)
[2017-07-07 12:00] VITALS: BP 128/73; PULSE 115; RESP 20; TEMP 98.1; O2SAT 92
[2017-07-07 16:00] VITALS: BP 139/70; PULSE 105; RESP 21; TEMP 98.2; O2SAT 93
[2017-07-07 20:00] VITALS: BP 128/70; PULSE 102; RESP 15; TEMP 98.2; O2SAT 96
[2017-07-08] VITALS: BP 142/83; PULSE 96; RESP 16; TEMP 97.6; O2SAT 91
[2017-07-08] MEDS: ACETAMINOPHEN/HYDROcodone 325 MG/5 MG TAB PO PRN ×4 (00:24→17:01)
[2017-07-08] MEDS: RESP: ALBUTEROL 2.5 MG/IPRATROPIUM 0.5 MG NEB (SCH) NEB ×3 (04:00→16:00)
[2017-07-08] MEDS: SODIUM CHLOR 0.45% 1000 ML INJ 1,000 ML IV SCH ×2 (04:15→12:14)
[2017-07-08] MEDS: PCA - TOTAL MG MORPHINE DELIVERED PER SHIFT SCH ×2 (05:54→14:00)
[2017-07-08 08:00] VITALS: BP 154/90; PULSE 101; RESP 18; TEMP 99.1; O2SAT 92
[2017-07-08] MEDS: RIVAROXABAN 10 MG TAB PO SCH (08:16)
[2017-07-08] MEDS: MAGNESIUM HYDROXIDE SUSP 30 ML CUP PO PRN (08:16)
[2017-07-08] MEDS: ALPRAZolam 1 MG TAB PO PRN (08:17)
[2017-07-08] MEDS: DOCUSATE SODIUM 100 MG CAP PO PRN (08:17)
[2017-07-08] MEDS: FOLIC ACID 1 MG TAB PO SCH (08:17)
[2017-07-08] MEDS: NICOTINE 14 MG/24 HR PATCH T-DERMAL SCH (08:17)
[2017-07-08] MEDS: REMOVE OLD PATCH T-DERMAL SCH (08:17)
[2017-07-08] MEDS: INSULIN ASPART SUPPLEMENTAL SCALE SQ SCH ×3 (08:18→17:00)
[2017-07-08 12:00] VITALS: BP 126/76; PULSE 103; RESP 18; TEMP 97.8; O2SAT 97
[2017-07-08] MEDS ORDERED: XANA1TAB2 PO (13:29)
[2017-07-08] MEDS ORDERED: INSULIN DETEMIR 100 UNITS/ML VIAL SQ SCH (13:45)
--- NOTE | 2017-07-08 13:57 | HHI.PR ---
Subjective Remarks Patient's blood sugars very elevated Pain controlled Denies cp/sob denies blurry vision Denies abdominal pain , nausea or vomiting Objective Vitals Vital Signs Date Time Temp Pulse Resp B/P (MAP) Pulse Ox O2 Delivery O2 Flow Rate FiO2 07/08/17 08:33 Nasal Cannula 3.00 07/08/17 08:00 99.1 101 18 154/90 (111) 92 07/08/17 00:00 97.6 96 16 142/83 (102) 91 07/07/17 20:00 98.2 102 15 128/70 (89) 96 07/07/17 19:39 Nasal Cannula 3.00 07/07/17 16:00 98.2 105 21 139/70 (93) 93 I/O 07/07/17 07/07/17 07/07/17 07/08/17 07/08/17 07/08/17 07:00 15:00 23:00 07:00 15:00 23:00 Intake Total 480 ml 450 ml 360 ml Output Total 3000 ml Balance 480 ml 450 ml -2640 ml Intake Oral 480 ml 450 ml 360 ml Output Urine Total 3000 ml # Voids 1 7 # Bowel Movements 0 0 1 Result Diagram: 07/07/17 0422 07/07/17 1312 Imaging Last Impressions Hip X-Ray 07/04/17927 Signed Impressions: Service Date/Time: Tuesday, July 04, 2017 10:45 - CONCLUSION: Expected postsurgical findings status post total hip arthroplasty. Angel Johnson MD Objective Remarks AAOX3 NAD CLEAR LUNGS BL NO EDEMA IN EXTREMITIES Medications and IVs Current Medications Medications (Trade) Dose Ordered Sig/Mayo Route Start Time Stop Time Status Last Admin Vancomycin/Sodium Chloride 200 ml @ 200 mls/hr [employer] IV 07/04/17 06:00 07/04/17 06:36 (Xarelto) 10 mg Q24H PO 07/05/17 09:00 07/08/17 08:16 ([place] 5-325 Mg) 1 tab Q4H PRN PO 07/04/17 09:30 ([place] 5-325 Mg) 2 tab Q4H PRN PO 07/04/17 09:30 07/08/17 12:42 (Tylenol) 650 mg Q6H PRN PO 07/04/17 09:30 (Zofran Inj) 4 mg Q6H PRN IVP 07/04/17 09:30 07/06/17 05:51 (Colace) 100 mg BID PRN PO 07/04/17 09:30 07/08/17 08:17 (Ambien) 5 mg HS PRN PO 07/04/17 09:30 (Narcan Inj) 0.4 mg UNSCH PRN IV PUSH 07/04/17 09:30 (Morphine 1 Mg/ ml GUNNER[employer]S MATE M) 30 mg UNSCH IV 07/04/17 09:30 07/05/17 01:54 GUNNER'S MATE M Dosage Infused (Pha) 1 Q8HR .XX 07/04/17 14:00 07/05/17 14:00 Sodium Chloride 1,000 ml @ 125 mls/hr Q8H IV 07/04/17 12:15 07/06/17 01:40 (D50w (Vial) Inj) 50 ml UNSCH PRN IV PUSH 07/04/17 19:00 (Glucagon Inj) 1 mg UNSCH PRN OTHER 07/04/17 19:00 (NovoLOG SUPPLEMENTAL SCALE) 1 ACHS SLIDING SCALE SQ 07/04/17 21:00 07/08/17 11:44 (Habitrol 14 Mg Patch.24 Hr) 1 patch DAILY T-DERMAL 07/05/17 09:00 07/08/17 08:17 Miscellaneous Information 1 DAILY T-DERMAL 07/05/17 09:00 07/08/17 08:17 (Xanax) 2 mg BID PRN PO 07/05/17 11:30 07/08/17 08:17 (Folate) 1 mg DAILY PO 07/05/17 11:30 07/08/17 08:17 (Duoneb Neb) 1 ampule Q6HR NEB NEB 07/05/17 12:00 07/07/17 09:00 (Milk Of Magnesia Liq) 30 ml BID PRN PO 07/05/17 23:45 07/08/17 08:16 (Duoneb Neb) 1 ampule Q2HR NEB PRN NEB 07/06/17 03:30 A/P Assessment and Plan 57-year-old female admitted secondary to elective left hip surgery Osteoarthritis -Status post left hip replacement surgery, ortho following -Continue pain treatments as needed -Continue physical therapy -07/05 Hold home steroid until cleared by surgery Anxiety Depression Bipolar Disorder -Continue baseline treatments -/ Xanax PRN per home medications Diabetes mellitus type 2 -Accu checks with SSI -Diabetic diet 07/08 blood sugar severely elevated in the 300s and 400s range. I will resume the patient's home Lantus 7 units subcu to be given now. Resume patient's home metformin and Victoza. To need to monitor Accu-Cheks. Discussed with RN. The patient okay to be discharged if blood sugars go below 300. Hypertension, stable -Continue baseline treatment -Follow blood pressures -Adjust treatments as needed Hyperlipidemia -Continue present treatment -Follow as an outpatient Hepatitis C -Standard precautions -No change to baseline treatment -Follow as an outpatient COPD Tobacco Abuse Nicotine dependence -NicoDerm started -Patient counseled to quit smoking -No exacerbation of COPD -07/05 patient with mild wheezing, DuoNeb ordered Discharge Planning Resume home Lantus, Victoza and metformin. Patient okay to be discharged if blood sugars go below 300. Ward Guzman MD July 08, 2017 13:57
[2017-07-08 14:00] VITALS: RESP 18
[2017-07-08] MEDS ORDERED: metFORMIN HCL 500 MG TAB PO SCH (18:00)
[2017-07-08] MEDS ORDERED: LIRAGLUTIDE 1.2 MG SQ SCH (21:00)
== END 2017-07-08 17:12 | DRG 470 ==
LOC: HSDI 05:07 → N06B 11:03
PROVIDERS: ADMIT Orthopaedic Surgery; ATTEND Orthopaedic Surgery
PROC: 0SRB03Z Replacement of Left Hip Joint with Ceramic Synthetic Substitute, Open Approach (ICD-10-PCS; principal; 2017-07-04 06:52)
DX: M16.12 Unilateral primary osteoarthritis, left hip (principal); M06.9 Rheumatoid arthritis, unspecified; M65.9 Synovitis and tenosynovitis, unspecified; I10 Essential (primary) hypertension; M71.552 Other bursitis, not elsewhere classified, left hip; E11.9 Type 2 diabetes mellitus without complications; E78.5 Hyperlipidemia, unspecified; J44.9 Chronic obstructive pulmonary disease, unspecified; K21.9 Gastro-esophageal reflux disease without esophagitis; E87.6 Hypokalemia; B19.20 Unspecified viral hepatitis C without hepatic coma; F17.210 Nicotine dependence, cigarettes, uncomplicated; F31.9 Bipolar disorder, unspecified; F41.9 Anxiety disorder, unspecified; Z79.4 Long term (current) use of insulin; Z88.0 Allergy status to penicillin; Z88.1 Allergy status to other antibiotic agents; Z96.641 Presence of right artificial hip joint
CPT/HCPCS: 73501; 80048; 82947; 82948; 85014; 85018; 85025; 86850; 86900; 86901; 88305; 88311; 94150; 94640; 94664; C1713; C1776; J1580; J1815; J2250; J2270; J2370; J2405; J3010; J3370; J7050; J7120; J7613